=== PATIENT | male | born 1965 | race Caucasian/White ===

== ENCOUNTER 2024-06-02 15:31 | Emergency (ER) | payer MEDICARE, SELFPAY ==
[2024-06-02] VITALS (13 sets, daily range): BP systolic 118–163; BP diastolic 61–96; PULSE 79–92; RESP 14–21; TEMP 36.7–37.2; O2SAT 95–100; BMI 21.7
--- NOTE | 2024-06-02 16:14 | EDNOTE_ITS ---
ED General RME/HPI General Chief complaint: Flu Like Symptoms Stated complaint: FLU LIKE SYMPTOMS X 3 DAYS Time Seen by Provider: 06/02/24 16:09 Arrival date/time: 06/02/24 15:31 CC: Nausea vomiting with occasional soft stool HPI onset going for the past 3 days denies headache shortness of breath difficulty breathing or chest pain. At 2045 patient admits that he did not tell me about the right shoulder and right hip pain status post fall when he had a syncopal event after becoming dizzy lightheaded. The patient has free range of motion of his shoulder but states his pain in his hip continues to worsen, and he continues to have nausea. Related Data Home Medications ?Medication ?Instructions ?Recorded ?Confirmed carvedilol 3.125 mg tablet 3.125 mg PO BID 10/07/23 10/07/23 duloxetine 60 mg capsule,delayed 60 mg PO QDAY 10/07/23 10/07/23 release empagliflozin 12.5 mg-metformin 1 tab PO BID 10/07/23 10/07/23 1,000 mg tablet (Synjardy) ferrous sulfate 325 mg (65 mg 325 mg PO MWF 10/07/23 10/07/23 iron) tablet (FeroSul) flecainide 100 mg tablet 100 mg PO BID 10/07/23 10/07/23 gabapentin 800 mg tablet 800 mg PO TID 10/07/23 10/07/23 ropinirole 1 mg tablet 1 mg PO TID 10/07/23 10/07/23 sildenafil 100 mg tablet (Viagra) 100 mg PO QDAY PRN erection 10/07/23 10/07/23 simvastatin 40 mg tablet 40 mg PO QPM 10/07/23 10/07/23 Previous Rx's ?Medication ?Instructions ?Recorded clindamycin HCl 300 mg capsule 300 mg PO Q8H #24 caps 10/08/23 meloxicam 7.5 mg tablet 7.5 mg PO QDAY #10 tabs 06/02/24 ondansetron 4 mg disintegrating 4 mg PO BID #14 tabs 06/02/24 tablet pantoprazole 20 mg tablet,delayed 20 mg PO QAM #30 tabs 06/02/24 release (Protonix) Allergies Allergy/AdvReac Type Severity Reaction Status Date / Time No Known Allergies Allergy Verified 06/02/24 15:47 Review of Systems Review of Systems Narrative Review of Systems: GEN: No fever, no chills, no weight loss EYES: No discharge, no visual changes, no pain HEENT: No ear pain, no congestion, no sore throat PULM: No shortness of breath, no cough, no congestion CV: No chest pain, no dyspnea on exertion, no palpitations GI: + nausea, + vomiting, no diarrhea, no pain, no constipation : No frequency, no urgency, no dysuria MUSC/SKEL: No joint pain, no back pain SKIN: No rash PSYCH: No hallucinations, no depression HEME/LYMPH: No easy bleeding or bruising tendencies NEURO: No weakness, no headache Past Medical History Past Medical History NEUROLOGIC: Positive Neurological Disorders (restless leg syndrome) and Peripheral Neuropathy; Negative Seizures CARDIAC: Positive Cardiac Disorders and Atrial Fibrillation; Negative Congestive Heart Failure or Hypertension (no more after gastric bypass.) RESPIRATORY: Negative Chronic Obstructive Pulmonary Disease (COPD) or Asthma GENITOURINARY: Negative Renal Disease MUSCULOSKELETAL: Negative Musculoskeletal Disorders ENDOCRINE: Positive Diabetes Mellitus Type 2; Negative Diabetes Mellitus Type 1 HEMATOLOGIC: Negative Sickle Cell Disease PSYCHO/SOCIAL: Positive Depression and Anxiety OTHER HISTORY: Positive Falls; Negative Blood Transfusions, Anesthesia Reactions or MRSA Surgical History SURGICAL: Positive Gastric Bypass Surgery (6 yrs ago) Social History SMOKING STATUS: Current every day smoker SECOND HAND EXPOSURE: No ED Exam Narrative Physical exam: [General: Not in any acute distress Head normocephalic HEENT: Within acceptable limits Neck is supple nontender Chest equal chest rise nontender to palpation Respiratory: Clear to auscultation no wheezes crackles or rubs CV: Rate rhythm is regular no murmurs rubs or clicks Abdomen is soft nontender no masses positive bowel sounds all 4 quadrants Back: No CVA tenderness no spinous process tenderness from cervical spine thoracic and lumbar spine Skin: Intact no petechiae rash induration ulceration or crepitus Extremities: Moving all extremity against resistance cap refill less than 2 seconds neurosensory intact Neuro: Awake alert oriented x3 Glascow coma 15 no focal deficits] Course Quality Measures none Orders Category Date Time Status Saline [Insert IV] NOW Care 06/02/24 16:[address] abdomen pelvis wo con Stat Exams 06/02/24 18:03 Completed XR hip RT w pelvis 2-3V Stat Exams 06/02/24 20:45 Completed CBC Stat Lab 06/02/24 16:37 Completed CMP [Comprehensive Metabolic Panel] Stat Lab 06/02/24 16:37 Completed CMP [Comprehensive Metabolic Panel] Stat Lab 06/02/24 22:27 Completed Drug Screen,Urine Stat Lab 06/02/24 20:21 Completed Urinalysis Stat Lab 06/02/24 20:21 Completed Ketorolac Inj [Toradol Inj] Med 06/02/24 20:42 Discontinued 15 mg IVP X1 ONE Lidocaine 2% Viscous [Xylocaine 2% Viscous] Med 06/02/24 22:35 Discontinued 15 ml PO X1 ONE Ondansetron Inj [Zofran Inj] Med 06/02/24 20:42 Discontinued 4 mg IV X1 ONE Ondansetron Inj [Zofran Inj] Med 06/02/24 22:30 Discontinued 4 mg IV X1 ONE Sodium Chloride 0.9% 1000 ml [Ns] 1,000 ml Med 06/02/24 16:13 Discontinued IV 999 mls/hr Sodium Chloride 0.9% 1000 ml [Ns] 1,000 ml Med 06/02/24 17:47 Discontinued IV 999 mls/hr Sodium Chloride 0.9% 1000 ml [Ns] 1,000 ml Med 06/02/24 21:31 Discontinued IV 999 mls/hr mg Hyd/Al Hyd/Tommie Susp [Maalox Susp] Med 06/02/24 22:35 Discontinued 30 ml PO X1 ONE Vital Signs Vital signs: Vital Signs Temperature 98.1 F 06/02/24 15:32 Pulse Rate 91 06/02/24 15:32 Respiratory Rate 20 06/02/24 15:32 Blood Pressure 125/78 06/02/24 15:32 Pulse Oximetry (%) 100 06/02/24 15:32 Oxygen Delivery Method Room Air 06/02/24 15:32 [facility] Patient data External records reviewed:: [facility] previous records and EMS form Clinical information provided by:: patient and EMS Social determinants that could affect healthcare access:: none Patient has the following chronic illnesses:: Diabetes hypertension depression How is presenting disease/condition affected by chronic disease/condition?: u neffected by Evaluation data The following diagnostics were reviewed and interpreted by me:: lab results Lab and/or radiology exams considered but not ordered:: Hip is negative for any acute finding as interpreted by me read by radiology CBC shows no acute anemia thrombocytopenia leukocytosis of 13.9 CMP shows a sodium 133 potassium of 4.3 chlorides 95 CO2 of 27.1 BUN of 33 creatinine 1.4 glucose of 98. AST is mildly elevated no other transaminitis or T. bili elevation Urine is negative UDS is positive for THC CT of the abdomen is inter by me read by radiology shows a distended gallbladder with no other acute finding. COVID and influenza are negative Repeat CMP shows a creatinine 1.1 patient be discharged home. Interpretation Summary: I do not feel this is a gallbladder patient had a syncopal event, with shoulder and hip pain in the shoulder is unremarkable hip is unremarkable via x-ray this time comfortable discharging the patient home Medications Medications considered but not ordered:: None Medication administrations:: Medication Administration History Discontinued Medications Al Hydrox/Mg Hydrox/Simethicone (Mg Hyd/Al Hyd/Tommie (Maalox Reg) Susp 30 Ml Udc) 30 ml PO X1 ONE Stop: 06/02/24 22:36 Last Admin: 06/02/24 22:38 Dose: 30 ml Documented By: TC Sodium Chloride (Ns) 1,000 mls @ 999 mls/hr IV .Q1H1M ONE Stop: 06/02/24 17:13 Last Infusion: 06/02/24 19:01 Dose: Infused Documented By: Admin: 06/02/24 16:45 Dose: 999 mls/hr Documented By: VG Sodium Chloride (Ns) 1,000 mls @ 999 mls/hr IV .Q1H1M ONE Stop: 06/02/24 18:47 Last Infusion: 06/02/24 20:15 Dose: Infused Documented By: Admin: 06/02/24 19:16 Dose: 999 mls/hr Documented By: VG Sodium Chloride (Ns) 1,000 mls @ 999 mls/hr IV .Q1H1M ONE Stop: 06/02/24 22:31 Last Infusion: 06/02/24 22:30 Dose: Infused Documented By: Admin: 06/02/24 21:39 Dose: 999 mls/hr Documented By: TC Ketorolac Tromethamine (Ketorolac Inj 30 Mg/Ml Vial) 15 mg IVP X1 ONE Stop: 06/02/24 20:43 Last Admin: 06/02/24 21:10 Dose: 15 mg Documented By: TC Lidocaine HCl (Lidocaine Viscous 2% 15 Ml Udc) 15 ml PO X1 ONE Stop: 06/02/24 22:36 Last Admin: 06/02/24 22:38 Dose: 15 ml Documented By: TC Ondansetron HCl (Ondansetron Inj 2 Mg/Ml Inj 2 Ml) 4 mg IV X1 ONE; Protocol Stop: 06/02/24 20:43 Last Admin: 06/02/24 21:11 Dose: 4 mg Documented By: TC Ondansetron HCl (Ondansetron Inj 2 Mg/Ml Inj 2 Ml) 4 mg IV X1 ONE; Protocol Stop: 06/02/24 22:31 Last Admin: 06/02/24 22:32 Dose: 4 mg Documented By: TC None Consultations Consultation(s) initiated? (list below): No Diagnosis Differential Diagnosis ED Complaint MDM: Dehydration MARCO syncope Most likely diagnosis given after review of the tests above:: Dehydration MARCO syncope Admission Indicated Admission indicated?: not indicated Explain why admission is indicated or not indicated:: Stable for discharge Admission Request Was there a request for admission?: No Disposition Plan Disposition Plan: Discharge Discharge Attestation Discharge Attestation: The patient and all family members were given an opportunity to ask questions and understood the discharge instructions. Discharge instructions specifically effects, indications for sooner follow up or return to the emergency department, and the expected course of current diagnosis. Patient condition: Stable Medical Decision Making Differential Diagnosis Differential Diagnosis: Dehydration MARCO syncope Lab Data 06/02/24 16:37 06/02/24 22:27 Labs: Lab Results 06/02/24 06/02/24 06/02/24 Range/Units 16:37 20:21 22:27 WBC 13.9 H (3.8-10.6) Thou/mm3 RBC 5.32 (4.50-5.90) Miln/mm3 Hgb 15.7 (13.5-16.0) g/dL Hct 42.8 (41.0-53.0) % MCV 81 (80-100) fL MCH 29.5 (25.0-35.0) pg MCHC 36.7 (31.0-37.0) g/dl RDW Std Deviation 33.9 L (35.1-43.9) fL Plt Count 322 (140-440) Thou/mm3 Neut % (Auto) 68 (37-80) % Lymph % (Auto) 22 (10-50) % Wilcox % (Auto) 9 (0-12) % Eos % (Auto) 1 (0-10) % Baso % (Auto) 1 (0-2.5) % Neut # (Auto) 9.4 H (1.8-7.7) Thou/mm3 Lymph # (Auto) 3.1 (1.0-4.8) Thou/mm3 Wilcox # (Auto) 1.2 H (0.0-0.8) Thou/mm3 Eos # (Auto) 0.1 (0.0-0.5) Thou/mm3 Baso # (Auto) 0.1 (0.0-0.2) Thou/mm3 Immature Gran # (Auto) 0.04 H (0.00-0.00) Thou/mm3 Absolute Nucleated RBC 0.00 (0.00-0.00) Thou/mm3 Immature Gran % 0 (0-0) % Nucleated RBC % 0 (0) /100 WBC Sodium 133 L 134 L (136-145) mMol/L Potassium 4.3 4.0 (3.4-5.1) mMol/L Chloride 95 L 101 (98-107) mMol/L Carbon Dioxide 27.1 25.8 (20.0-31.0) mMol/L Anion Gap 11 7 (7-16) BUN 33 H 27 H (9-23) mg/dL Creatinine 1.4 H 1.1 (0.6-1.3) mg/dL Estim Creat Clear Calc 59.8 L 76.1 (>60) mL/min eGFR 59 L > 60 (60 - ) See Note BUN/Creatinine Ratio 24 H 25 H (12-20) Ratio Glucose 98 143 H (74-106) mg/dL Calculated Osmolality 273 L 275 (275-295) Calcium 10.7 H 8.6 D (8.3-10.6) mg/dL Corrected Calcium 10.7 H 9.0 D (8.5-10.1) mg/dL Total Bilirubin 0.8 0.5 (0.3-1.2) mg/dL AST 49 H 42 H (0-34) U/L ALT 37 27 (10-49) U/L Alkaline Phosphatase 134 H 98 D (46-116) U/L Total Protein 7.5 5.9 (5.7-8.2) gm/dL Albumin 4.6 3.5 D (3.5-5.0) gm/dL Globulin 2.9 2.4 (2.3-3.5) gm/dL Albumin/Globulin Ratio 1.6 1.5 (1.2-2.2) Ur Collection Type Clean Catch Urine Color Yellow (Lt Yel-Yel) Urine Clarity Clear (Clear/Hazy) Urine pH 6.0 (5.0-7.0) Ur Specific [place] 1.037 H (1.001-1.035) Urine Protein 1+ A (Neg - Trace) Urine Glucose (UA) 4+ A (Negative) Urine Ketones 1+ A (Negative) Urine Blood Trace (Negative) Urine Nitrite Negative (Negative) Urine Bilirubin Negative (Negative) Urine Urobilinogen (Auto) Negative (0.0-1.0) mg/dL Ur Leukocyte Esterase Negative (Negative) Urine RBC 4 H (0-3) /hpf Urine WBC 0 (0-5) /hpf Ur Squamous Epith Cells < 1 (0-5) /hpf Urine Bacteria Rare (None) Urine Opiates Screen Negative (Negative) Urine Fentanyl Screen Negative (Negative) Ur Barbiturates Screen Negative (Negative) U Amphetamin/Meth Scrn Negative (Negative) U Benzodiazepines Scrn Negative (Negative) U Cocaine Metab Screen Negative (Negative) U Marijuana (THC) Screen Positive A (Negative) Discharge Plan Plan Patient Disposition: HOME (Self Care) Patient condition on transfer: Stable Prescriptions/Referrals Prescriptions/Med Rec: New ondansetron 4 mg tablet,disintegrating 4 mg PO BID Qty: 14 0RF pantoprazole [Protonix] 20 mg tablet,delayed release (DR/EC) 20 mg PO QAM Qty: 30 0RF meloxicam 7.5 mg tablet 7.5 mg PO QDAY Qty: 10 0RF No Action gabapentin 800 mg Tablet 800 mg PO TID Synjardy 12.5-1,000 mg Tablet 1 tab PO BID Rx Instructions: with food simvastatin 40 mg Tablet 40 mg PO QPM duloxetine 60 mg Capsule,Delayed Release(Dr/Ec) 60 mg PO QDAY ferrous sulfate [FeroSul] 325 mg (65 mg iron) Tablet 325 mg PO MWF Rx Instructions: Three Times Weekly For Restless Leg Syndrome carvedilol 3.125 mg Tablet 3.125 mg PO BID Rx Instructions: must administer with a meal/food flecainide 100 mg Tablet 100 mg PO BID Rx Instructions: flecainide acetate ropinirole 1 mg Tablet 1 mg PO TID sildenafil [Viagra] 100 mg Tablet 100 mg PO QDAY PRN (Reason: erection) Rx Instructions: administer 30 minutes to 4 hours before activity. Pt has not taken or has not needed for a while. clindamycin HCl 300 mg capsule 300 mg PO Q8H Qty: 24 0RF Referrals: Antwan Hood MD [Primary Care Provider] - In 1 week Problem List Clinical Impression: Syncope, Nausea vomiting and diarrhea, MARCO (acute kidney injury) Patient/Caregiver Discharge Instructions Other Activity Instructions:: Rest: Drink plenty of fluids, if there is worsening symptoms follow-up with your primary care provider return the emergency room for reevaluation. Education Materials: Self-Care for Vomiting and Diarrhea, Dizziness Fainting Poss Causes, ED Vomiting and Diarrhea ... Print Language: Latvian Stand Alone Forms: Ana Award Info., Work/School Release, Patient Portal Info Letter JOSEP/LOUISE Supervising Physician JOSEP/LOUISE Supervising Physician: Shalom Mccormick ENP
[2024-06-02] MEDS: SODIUM CHLORIDE 0.9% 1000 ML 1,000 ML 999 ML IV ×3 (16:45→21:39)
[2024-06-02 17:05] LABS: Basophils # (Auto) 0.1 Thou/mm3 (0.0-0.2); Basophils % (Auto) 1 % (0-2.5); Eosinophils # (Auto) 0.1 Thou/mm3 (0.0-0.5); Eosinophils % (Auto) 1 % (0-10); Hematocrit 42.8 % (41.0-53.0); Hemoglobin 15.7 g/dL (13.5-16.0); Immature Granulocytes % (Auto) 0 % (0-0); Immature Granulocytes Auto 0.04 Thou/mm3 (0.00-0.00); Lymphocytes # (Auto) 3.1 Thou/mm3 (1.0-4.8); Lymphocytes % (Auto) 22 % (10-50); Mean Corpuscular HGB Conc 36.7 g/dl (31.0-37.0); Mean Corpuscular Hemoglobin 29.5 pg (25.0-35.0); Mean Corpuscular Volume 81 fL (80-100); Monocytes # (Auto) 1.2 Thou/mm3 (0.0-0.8); Monocytes % (Auto) 9 % (0-12); Neutrophils # (Auto) 9.4 Thou/mm3 (1.8-7.7); Neutrophils % (Auto) 68 % (37-80); Nucleated Red Blood Cell % 0 /100 WBC (0); Platelet Count 322 Thou/mm3 (140-440); RDW Standard Deviation 33.9 fL (35.1-43.9); Red Blood Count 5.32 Miln/mm3 (4.50-5.90); White Blood Count 13.9 Thou/mm3 (3.8-10.6)
[2024-06-02 17:25] LABS: Alanine Aminotransferase 37 U/L (10-49); Albumin, Serum 4.6 gm/dL (3.5-5.0); Albumin/Globulin Ratio 1.6 (1.2-2.2); Alkaline Phosphatase 134 U/L (46-116); Anion Gap 11 (7-16); Aspartate Amino Transferase 49 U/L (0-34); BUN/Creatinine Ratio 24 Ratio (12-20); Bilirubin,Total 0.8 mg/dL (0.3-1.2); Blood Urea Nitrogen 33 mg/dL (9-23); Calcium 10.7 mg/dL (8.3-10.6); Calcium (Corrected) 10.7 mg/dL (8.5-10.1); Carbon Dioxide 27.1 mMol/L (20.0-31.0); Chloride 95 mMol/L (98-107); Creatinine (Component) 1.4 mg/dL (0.6-1.3); Estimated Creatinine Clearance 59.8 mL/min (>60); Globulin 2.9 gm/dL (2.3-3.5); Glucose 98 mg/dL (74-106); Osmolality,Calculated 273 (275-295); Potassium 4.3 mMol/L (3.4-5.1); Sodium 133 mMol/L (136-145); Total Protein 7.5 gm/dL (5.7-8.2); eGFR 59 See Note
--- NOTE | 2024-06-02 18:03 | XR_ITS ---
Examination: CT abdomen and pelvis without contrast. Coronal 3-D reconstructions. Sagittal 2-D reconstructions. Date and time of exam:June 02, 2024 1829 hrs. Indications: Status post fall today, generalized abdominal pain dizziness nausea vomiting CTDI: vol (mGy): 7.38 DLP: (mGycm): 429 Technique: Axial images of the abdomen have been obtained, 3 mm slice thickness Intravenous contrast material has not been administered. Low dose protocols were performed. One or more of the following dose reduction techniques were used; automated exposure control, adjustment of the mA and/or KV according to patient size, use of iterative reconstruction technique. Findings: Old fracture right 10th rib No focal liver lesions Distended gallbladder Gastric sutures No pancreatic or splenic mass No renal calculi or hydronephrosis Aorta normal size No free blood in the abdomen Urinary bladder intact Moderate osteopenia Impression: No pneumothorax No abdominal parenchymal laceration Abdominal aorta intact, no free blood in the Mildly distended gallbladder, consider gallbladder sonography follow-up Were
[2024-06-02 20:27] LABS: Collection Type, Urine Clean Catch; WBC,Urine 0 /hpf (0-5)
[2024-06-02 20:45] LABS: Bacteria,Urine Rare; Bilirubin,Urine Negative (Negative); Blood,Urine Trace (Negative); Clarity,Urine Clear (Clear/Hazy); Color,Urine Yellow (Lt Yel-Yel); Glucose, Urine 4+ (Negative); Ketones,Urine 1+ (Negative); Leukocyte Esterase,Urine Negative (Negative); Nitrite,Urine Negative (Negative); Protein,Urine 1+ (Neg - Trace); RBC,Urine 4 /hpf (0-3); Specific Gravity,Urine 1.037 (1.001-1.035); Squamous Epithelial Cell,Urine < 1 /hpf (0-5); Urobilinogen,Urine Negative mg/dL (0.0-1.0)
--- NOTE | 2024-06-02 20:45 | XR_ITS ---
Examination:Right hip AP, lateral, AP pelvis 3 views Technique: Hip AP lateral, AP pelvis, 3 views Exam date and time:June 02, 20242050 hrs. Indications: Patient fell tonight with injury to the right hip, right hip pain. Findings: No right hip fracture No dislocation Moderate narrowing hip joints Left hip bones of the pelvis intact Impression: No acute hip or pelvic fracture.
[2024-06-02 21:05] LABS: Amphetamine/Methamp Scrn,U Negative (Negative); Barbiturate Screen,Urine Negative (Negative); Benzodiazepines Screen,Urine Negative (Negative); Benzoylecgonine Screen, Ur Negative (Negative); Fentanyl Screen,Urine Negative (Negative); Opiate Screen,Urine Negative (Negative); THC Screen,Urine Positive (Negative)
[2024-06-02] MEDS: KETOROLAC INJ 30 MG/ML VIAL 15 MG IVP (21:10)
[2024-06-02] MEDS: ONDANSETRON INJ 2 MG/ML INJ 2 ML 4 MG IV ×2 (21:11→22:32)
[2024-06-02] MEDS: MG HYD/AL HYD/SIME (Maalox Reg) SUSP 30 ML UDC PO (22:38)
[2024-06-02] MEDS: LIDOCAINE VISCOUS 2% 15 ML UDC PO (22:38)
[2024-06-02 22:53] LABS: Alanine Aminotransferase 27 U/L (10-49); Albumin, Serum 3.5 gm/dL (3.5-5.0); Albumin/Globulin Ratio 1.5 (1.2-2.2); Alkaline Phosphatase 98 U/L (46-116); Anion Gap 7 (7-16); Aspartate Amino Transferase 42 U/L (0-34); BUN/Creatinine Ratio 25 Ratio (12-20); Bilirubin,Total 0.5 mg/dL (0.3-1.2); Blood Urea Nitrogen 27 mg/dL (9-23); Calcium 8.6 mg/dL (8.3-10.6); Carbon Dioxide 25.8 mMol/L (20.0-31.0); Chloride 101 mMol/L (98-107); Creatinine (Component) 1.1 mg/dL (0.6-1.3); Estimated Creatinine Clearance 76.1 mL/min (>60); Globulin 2.4 gm/dL (2.3-3.5); Glucose 143 mg/dL (74-106); Osmolality,Calculated 275 (275-295); Sodium 134 mMol/L (136-145); Total Protein 5.9 gm/dL (5.7-8.2); eGFR > 60 See Note
[2024-06-02] MEDS: DiphenhydrAMINE INJ 50 MG/ML VIAL IVP (23:09)
[2024-06-02] MEDS: METOCLOPRAMIDE INJ 5 MG/ML VIAL 2 ML 10 MG IVP (23:09)
[2024-06-03 00:18] VITALS: BP 147/79; PULSE 81; RESP 16; O2SAT 98
== END 2024-06-03 00:19 | disposition home or self-care (01) ==
PROVIDERS: Registered Nurse General Practice; Emergency Provider Emergency Medicine; PCP Family Medicine
DX: R11.2 Nausea with vomiting, unspecified (principal); R55 Syncope and collapse; N17.9 Acute kidney failure, unspecified; M25.551 Pain in right hip
CPT/HCPCS: 36415; 73502; 74176; 80053; 80307; 81001; 85025; 96361; 96374; 96375; 96376; 99284; J1200; J1885; J2405; J2765; J3490; J7030; A9270

== ENCOUNTER 2024-08-07 22:24 | Emergency (ER) | payer MEDICARE, SELFPAY ==
[2024-08-07 22:37] VITALS: BP 159/95; PULSE 95; RESP 19; TEMP 36.8; O2SAT 99; BMI 23.0
[2024-08-08 00:51] LABS: Collection Type, Urine Clean Catch; RBC,Urine 0 /hpf (0-3); Squamous Epithelial Cell,Urine 0 /hpf (0-5)
[2024-08-08 00:57] LABS: Bilirubin,Urine Negative (Negative); Blood,Urine Trace (Negative); Clarity,Urine Clear (Clear/Hazy); Color,Urine Lt-Yellow (Lt Yel-Yel); Culture Indicated,Urine Not Indicated; Glucose, Urine 3+ (Negative); Ketones,Urine Negative (Negative); Leukocyte Esterase,Urine Negative (Negative); Nitrite,Urine Negative (Negative); Protein,Urine Trace (Neg - Trace); Urobilinogen,Urine Negative mg/dL (0.0-1.0); WBC,Urine < 1 /hpf (0-5)
[2024-08-08 01:11] LABS: Alcohol, Urine Negative (Negative); Amphetamine/Methamp Scrn,U Positive (Negative); Barbiturate Screen,Urine Negative (Negative); Benzodiazepines Screen,Urine Negative (Negative); Benzoylecgonine Screen, Ur Negative (Negative); Fentanyl Screen,Urine Negative (Negative); Opiate Screen,Urine Negative (Negative); THC Screen,Urine Positive (Negative)
--- NOTE | 2024-08-08 01:41 | PC.NURSE ---
PPD STATED THAT CRISTINA LI WOULD LIKE TO BE NOTIFIED WHEN PT IS DISCHARGED. [phone]. [address] [facility].
--- NOTE | 2024-08-08 02:34 | EDNOTE_ITS ---
ED Psych RME/HPI General Chief Complaint: Psychiatric Symptoms Stated Complaint: 5150 Source: patient and EMS Arrival date/time: 08/07/24 22:24 Mode of arrival: EMS Limitations: no limitations RME / HPI RME / HPI Narrative: Dr. Carpenter?s Main ED Evaluation: 58-year-old male brought in by ambulance on a 5150 hold for reported danger to others. On arrival, the patient appears anxious, talkative, hyperactive, and agitated, with a notably unkempt appearance. He endorses a range of affective symptoms including feelings of depression, sadness, anger, and restlessness. He reports significant sleep disturbances, including difficulty initiating and maintaining sleep. Psychosocial stressors include an ongoing divorce, which he cites as a major source of emotional distress. He specifically expressed homicidal ideation toward ?a man named Osbaldo staying with [his] ,? prompting the current evaluation. The patient denies any history of suicide attempts or panic disorder but reports a family history of suicide. He has a known history of substance use, including methamphetamine and marijuana. Related Data Home Medications ?Medication ?Instructions ?Recorded ?Confirmed carvedilol 3.125 mg tablet 3.125 mg PO BID 10/07/23 duloxetine 60 mg capsule,delayed 60 mg PO QDAY 4 10/07/23 release empagliflozin 12.5 mg-metformin 1 tab PO BID 10/07/23 10/07/23 1,000 mg tablet (Synjardy) ferrous sulfate 325 mg (65 mg 325 mg PO MWF 10/07/23 0 10/07/23 iron) tablet (FeroSul) flecainide 100 mg tablet 100 mg PO BID 10/07/2310/06 gabapentin 800 mg tablet 800 mg PO TID 10/07/2310/06 ropinirole 1 mg tablet 1 mg PO TID 10/07/23 4 sildenafil 100 mg tablet (Viagra) 100 mg PO QDAY PRN e rection 10/07/23 10/07/23 simvastatin 40 mg tablet 40 mg PO QPM 10/07/23 Previous Rx's ?Medication ?Instructions ?Recorded clindamycin HCl 300 mg capsule 300 mg PO Q8H #24 caps 10/08/23 meloxicam 7.5 mg tablet 7.5 mg PO QDAY #10 tabs 05/15 02/06 ondansetron 4 mg disintegrating 4 mg PO BID #14 tabs 0 06/02/24 tablet pantoprazole 20 mg tablet,delayed 20 mg PO QAM #30 tab s 06/02/24 release (Protonix) Allergies Allergy/AdvReac Type Severity Reaction Status Date / Time No Known Allergies Allergy Verified 06/02/24 15:47 Review of Systems Review of Systems Systems Reviewed: All systems reviewed, normal except as documented Past Medical History Past Medical History NEUROLOGIC: Positive Neurological Disorders and Peripheral Neuropathy; Negative Seizures CARDIAC: Positive Cardiac Disorders and Atrial Fibrillation; Negative Congestive Heart Failure or Hypertension RESPIRATORY: Negative Chronic Obstructive Pulmonary Disease (COPD) or Asthma GENITOURINARY: Negative Renal Disease MUSCULOSKELETAL: Negative Musculoskeletal Disorders ENDOCRINE: Positive Diabetes Mellitus Type 2; Negative Diabetes Mellitus Type 1 HEMATOLOGIC: Negative Sickle Cell Disease PSYCHO/SOCIAL: Positive Depression and Anxiety OTHER HISTORY: Positive Falls; Negative Blood Transfusions, Anesthesia Reactions or MRSA Surgical History SURGICAL: Positive Gastric Bypass Surgery Social History SMOKING STATUS: Current every day smoker SECOND HAND EXPOSURE: No ED Exam Narrative Physical exam: On arrival, the patient appears anxious, talkative, hyperactive, and agitated, with a notably unkempt appearance. General Limitations: Present no limitations General appearance: Present alert and in no apparent distress Head Head exam: Present atraumatic Eye Eye exam: Present normal appearance, PERRL and EOMI ENT ENT exam: Present normal exam, normal oropharynx and mucous membranes moist Neck Neck exam: Present normal inspection, full ROM and trachea midline Chest Chest inspection: Present normal inspection and symmetric chest wall rise Respiratory Respiratory exam: Present normal lung sounds bilaterally Cardiovascular Cardiovascular exam: Present regular rate, normal rhythm and normal heart sounds Abdominal Exam Abdominal exam: Present soft and normal bowel sounds Extremities Exam Extremities exam: Present normal inspection and full ROM Back Exam Back exam: Present normal inspection and full ROM Neurological Exam Neurological exam: Present alert, oriented X3 and CN II-XII intact Psychiatric Psychiatric exam: Present normal affect and normal mood Skin Skin exam: Present warm, dry, intact and normal color Course Quality Measures none Orders Category Date Time Status Fingerstick [Bedside Blood Glucose] NOW Care 08/07/24 22:44 Active Alcohol, Urine Stat Lab 08/08/24 00:23 Completed Drug Screen,Urine Stat Lab 08/08/24 00:23 Completed Urinalysis, C/S if Indicated Stat Lab 08/08/24 00:23 Completed DiphenhydrAMINE [Benadryl] Med 08/08/24 02:34 Discontinued 50 mg PO X1 ONE LORazepam [Ativan] Med 08/08/24 02:34 Discontinued 2 mg PO X1 ONE Vital Signs Vital signs: Vital Signs Temperature 98.3 F 08/07/24 22:37 Pulse Rate 95 08/07/24 22:37 Respiratory Rate 19 08/07/24 22:37 Blood Pressure 159/95 H 08/07/24 22:37 Pulse Oximetry (%) 99 08/07/24 22:37 Oxygen Delivery Method Room Air 08/07/24 22:37 Psych MDM Narrative MDM Narrative:: 0023 Medically cleared for crisis 0600 Care signed out to oncoming dayshift provider. Past medical, surgical, social and family history reviewed. Vitals and home medications reviewed. Results and treatment plan discussed. They will assume the care of the patient at this time and will follow the patient, pending mental health evaluation. Scribe Attestation: ILindsey, am scribing for and in the presence of Dr. Carpenter. Provider Notation: Although this document has been carefully reviewed, there may still be some phonetic and other typographical errors. These errors are purely grammatical due to imperfections in the software program and should not be construed in any way to compromise the substance of the patient's medical care during this visit. Patient data External records reviewed:: [facility] previous records and EMS form Clinical information provided by:: patient and EMS Social determinants that could affect healthcare access:: mental health Patient has the following chronic illnesses:: see PMH How is presenting disease/condition affected by chronic disease/condition?: uneffected by Evaluation data The following diagnostics were reviewed and interpreted by me:: lab results Lab and/or radiology exams considered but not ordered:: na Interpretation Summary: Utox positive for meth and marijuana Medications / Prescriptions Medications or Prescriptions considered but not ordered:: na Medication administrations:: Medication Administration History Discontinued Medications Diphenhydramine HCl (Diphenhydramine Elix 25 Mg/10 Ml Udc) 50 mg PO X1 ONE Stop: 08/08/24 02:35 Last Admin: 08/08/24 02:45 Dose: 50 mg Documented By: EF Lorazepam (Lorazepam 0.5 Mg Tablet) 2 mg PO X1 ONE Stop: 08/08/24 02:35 Last Admin: 08/08/24 02:44 Dose: 2 mg Documented By: EF as above, if any Consultations Consultation(s) initiated? (list below): Yes Consultation #1 (Physician, Specialty, Details): see narrative Diagnosis Psych Differential Diagnosis: acute psychosis, suicidal ideation and depression Most likely diagnosis given after review of the tests above:: see clinical impression below Admission Indicated Admission indicated?: not indicated Explain why admission is indicated or not indicated:: pending mental health evaluation Admission Request Was there a request for admission?: No Disposition Plan Disposition Plan: other (specify) (sign out pending mental health evaluation) Discharge Plan Plan Patient condition on transfer: Stable Prescriptions/Referrals Prescriptions/Med Rec: No Action ondansetron 4 mg tablet,disintegrating 4 mg PO BID Qty: 14 0RF pantoprazole [Protonix] 20 mg tablet,delayed release (DR/EC) 20 mg PO QAM Qty: 30 0RF meloxicam 7.5 mg tablet 7.5 mg PO QDAY Qty: 10 0RF gabapentin 800 mg Tablet 800 mg PO TID Synjardy 12.5-1,000 mg Tablet 1 tab PO BID Rx Instructions: with food simvastatin 40 mg Tablet 40 mg PO QPM duloxetine 60 mg Capsule,Delayed Release(Dr/Ec) 60 mg PO QDAY ferrous sulfate [FeroSul] 325 mg (65 mg iron) Tablet 325 mg PO MWF Rx Instructions: Three Times Weekly For Restless Leg Syndrome carvedilol 3.125 mg Tablet 3.125 mg PO BID Rx Instructions: must administer with a meal/food flecainide 100 mg Tablet 100 mg PO BID Rx Instructions: flecainide acetate ropinirole 1 mg Tablet 1 mg PO TID sildenafil [Viagra] 100 mg Tablet 100 mg PO QDAY PRN (Reason: erection) Rx Instructions: administer 30 minutes to 4 hours before activity. Pt has not taken or has not needed for a while. clindamycin HCl 300 mg capsule 300 mg PO Q8H Qty: 24 0RF Referrals: No Primary/Family,Physician [Primary Care Provider] - In 1 week Problem List Clinical Impression: Suicidal ideation Patient/Caregiver Discharge Instructions Print Language: Citizen Of [place]
[2024-08-08] MEDS: LORazepam 0.5 MG TABLET 2 MG PO (02:44)
[2024-08-08] MEDS: DiphenhydrAMINE ELIX 25 MG/10 ML UDC 50 MG PO (02:45)
[2024-08-08 06:21] VITALS: BP 144/87; PULSE 92; RESP 18; TEMP 36.8; O2SAT 98
[2024-08-08 07:56] LABS: Basophils # (Auto) 0.1 Thou/mm3 (0.0-0.2); Basophils % (Auto) 1 % (0-2.5); Eosinophils # (Auto) 0.3 Thou/mm3 (0.0-0.5); Eosinophils % (Auto) 4 % (0-10); Hematocrit 39.8 % (41.0-53.0); Immature Granulocytes % (Auto) 0 % (0-0); Immature Granulocytes Auto 0.01 Thou/mm3 (0.00-0.00); Lymphocytes # (Auto) 2.3 Thou/mm3 (1.0-4.8); Lymphocytes % (Auto) 27 % (10-50); Mean Corpuscular HGB Conc 35.2 g/dl (31.0-37.0); Mean Corpuscular Hemoglobin 29.4 pg (25.0-35.0); Mean Corpuscular Volume 83 fL (80-100); Monocytes # (Auto) 0.5 Thou/mm3 (0.0-0.8); Monocytes % (Auto) 6 % (0-12); Neutrophils # (Auto) 5.4 Thou/mm3 (1.8-7.7); Neutrophils % (Auto) 63 % (37-80); Nucleated Red Blood Cell % 0 /100 WBC (0); Platelet Count 280 Thou/mm3 (140-440); RDW Standard Deviation 37.6 fL (35.1-43.9); Red Blood Count 4.77 Miln/mm3 (4.50-5.90); White Blood Count 8.7 Thou/mm3 (3.8-10.6)
[2024-08-08 08:00] VITALS: BP 156/86; PULSE 95; RESP 16; TEMP 36.8; O2SAT 97
--- NOTE | 2024-08-08 08:16 | PD.EDADDENDU ---
Emergency Room Addendum Addendum Narrative: 0600: Care assumed from Dr. Carpenter, the previous shift emergency physician. Past medical, surgical, social and family history reviewed. Vitals and home medications reviewed. I will assume the care of the patient at this time, pending mental health evaluation. Please refer to the emergency department record for history and examination from initial visit.?The following addendum documentation note is intended to reflect any pending information, findings, or radiology results not included in the patient?s initial chart. 1104: Patient has been evaluated by ASW and placed on a 5150 hold, pending LPS facility placement. 1150: Patient has been accepted by Dr. Soni at [facility]. EMS p/u @ 14:00 hours.
[2024-08-08 08:21] LABS: Alanine Aminotransferase 18 U/L (10-49); Albumin, Serum 4.1 gm/dL (3.5-5.0); Albumin/Globulin Ratio 1.4 (1.2-2.2); Alkaline Phosphatase 102 U/L (46-116); Anion Gap 8 (7-16); Aspartate Amino Transferase 26 U/L (0-34); BUN/Creatinine Ratio 13 Ratio (12-20); Bilirubin,Total 0.6 mg/dL (0.3-1.2); Blood Urea Nitrogen 14 mg/dL (9-23); Calcium 9.9 mg/dL (8.3-10.6); Calcium (Corrected) 9.9 mg/dL (8.5-10.1); Carbon Dioxide 29.9 mMol/L (20.0-31.0); Chloride 98 mMol/L (98-107); Creatinine (Component) 1.1 mg/dL (0.6-1.3); Estimated Creatinine Clearance 80.8 mL/min (>60); Globulin 2.9 gm/dL (2.3-3.5); Glucose 284 mg/dL (74-106); Osmolality,Calculated 282 (275-295); Potassium 4.2 mMol/L (3.4-5.1); Sodium 136 mMol/L (136-145); eGFR > 60 See Note
--- NOTE | 2024-08-08 08:27 | PC.NURSE ---
DR. NOVA MADE AWARE PT HAS HX OF A. FIB. DR. NOVA AT BEDSIDE CONFIRMED WITH PT. RN CALRIFIED IF EKG TO BE DONE AT THIS TIME; PER DR. NOVA, NO EKG AT THIS TIME; PT DENYING ANY CHEST PAIN.
--- NOTE | 2024-08-08 08:30 | PC.NURSE ---
DR. NOVA MADE AWARE PT'S FSBS 278 AT THIS TIME; NO NEW ORDERS RECEIVED.
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
--- NOTE | 2024-08-08 11:37 | PC.CC ---
PPD Dispatch, Usha made telephone contact with ASW to report that per a report review that all of patient's firearms were confiscated from his home in [place] and the people he was making Homicidal Statements towards Osbaldo and Kaylen were present and notified of the homicidal statements.
--- NOTE | 2024-08-08 11:43 | PC.NURSE ---
Addendum entered by Momo Crawford RN 08/08/24 12:08: RUSSELL HUNTER UPDATED THAT PT'S TRANSPORTATION HERE AT [facility] TO ARRIVE AT 1410. Addendum entered by Momo Crawford RN 08/08/24 11:52: KITCHEN STEWARDESS MADE AWARE REGARDING PT'S PLACEMENT AT [facility] AT THIS TIME. Original Note: SPOKE TO RUSSELL FROM [facility] FOR RN-RN REPORT. PER RUSSELL HUNTER, WE ARE ACCEPTING PT TO OUR FACILITY. HE IS ACCEPTED UNDER DR. FRANCO; HE IS GOING TO [address] IN ROOM 217B. PLEASE KEEP ME UPDATED ON PT'S ETA TO OUR FACILITY.
[2024-08-08 11:47] VITALS: BP 112/62; PULSE 91; RESP 18; TEMP 37.1; O2SAT 99
--- NOTE | 2024-08-08 11:58 | PC.CC ---
Patient was accepted to [facility] [address] Room 217[address], Dr. Soni. Patient was advised that he had been accepted to [facility] and was receptive to information.
[2024-08-08 13:58] VITALS: BP 143/92; PULSE 89; RESP 20; TEMP 36.8; O2SAT 100
[2024-08-08] MEDS: NICOTINE PATCH 21 MG/24 HR PATCH.TD24 TOP (14:12)
--- NOTE | 2024-08-08 14:19 | PC.NURSE ---
SPOKE TO GENEVA LI, PT'S BROTHER, & UPDATED REGARDING PT'S POC, WITH PT'S CONSENT.
--- NOTE | 2024-08-08 14:40 | PC.NURSE ---
EMS AT BEDSIDE WITH [employer]NAGEMENT INSTRUCTOR; BEDSIDE REPORT GIVEN. EMS TO TRANSPORT PT TO [facility].
== END 2024-08-08 14:48 ==
PROVIDERS: Emergency Medicine; Emergency Provider Emergency Medicine
DX: Z04.6 Encounter for general psychiatric examination, requested by authority (principal); R45.851 Suicidal ideations; Z75.1 Person awaiting admission to adequate facility elsewhere
CPT/HCPCS: 36415; 80053; 80307; 80320; 81001; 85025; 90839; 96127; 99285; A9270; G0480

== ENCOUNTER 2025-03-20 13:13 | Inpatient (IN) | payer MEDICARE, SELFPAY ==
[2025-03-20] VITALS (12 sets, daily range): BP systolic 88–182; BP diastolic 51–97; PULSE 68–110; RESP 16–19; TEMP 36.5–38.7; O2SAT 96–100; BMI 23.0; BMI 23.1
--- NOTE | 2025-03-20 13:34 | XR_ITS ---
Examination: Foot, left, 3 views Technique: AP, oblique, lateral views foot, 3 views Date and time of exam: 03/20/2025, 2:05 p.m. INDICATION: Assess for left great toe osteomyelitis COMPARISON: None. FINDINGS: Lytic changes of the tuft of the great toe are present with small and tiny bone fragments in the region. There is surrounding soft tissue swelling as well. The findings are consistent with great toe osteomyelitis and cellulitis. Midfoot and forefoot soft tissue swelling also noted. There is no evidence for osteomyelitis elsewhere in the left foot. No acute fracture or subluxation identified. Chronic fracture deformity of the distal metaphysis of the third metatarsal is present. Osteoarthritic changes noted at the midfoot. Os naviculare noted. Prominent plantar calcaneal enthesophyte is present. Note is also made of a very small thin linear radiodense foreign body at the webspace between the second and third toes. Diffuse atherosclerotic calcifications noted. IMPRESSION: Left foot cellulitis including great toe where there is osteomyelitis at the tuft of the distal phalanx. Very small thin linear radiodense foreign body at the webspace between the second and third toes. Chronic fracture deformity of the distal aspect of the third metatarsal. Degenerative changes as described.
[2025-03-20 14:01] LABS: Lactate (Lactic Acid) 2.1 mMol/L (0.4-2.0)
[2025-03-20 14:04] LABS: Base Excess, Venous 1 (-3-3); O2 Saturation, Venous 33 % (96-97); PCO2, Venous 42 mmHg (36-56); PO2, Venous 19 mmHg (15-58); pH, Venous 7.40 (7.33-7.66)
[2025-03-20 14:05] LABS: Basophils # (Auto) 0.0 Thou/mm3 (0.0-0.2); Basophils % (Auto) 0 % (0-2.5); Beta Hydroxybutyrate 1.6 mmol/L (<0.6); Eosinophils # (Auto) 0.0 Thou/mm3 (0.0-0.5); Eosinophils % (Auto) 0 % (0-10); Hematocrit 41.8 % (41.0-53.0); Hemoglobin 14.2 g/dL (13.5-16.0); Immature Granulocytes Auto 0.04 Thou/mm3 (0.00-0.00); Lymphocytes # (Auto) 0.8 Thou/mm3 (1.0-4.8); Lymphocytes % (Auto) 7 % (10-50); Mean Corpuscular HGB Conc 34.0 g/dl (31.0-37.0); Mean Corpuscular Hemoglobin 29.8 pg (25.0-35.0); Mean Corpuscular Volume 88 fL (80-100); Monocytes # (Auto) 0.8 Thou/mm3 (0.0-0.8); Monocytes % (Auto) 6 % (0-12); Neutrophils # (Auto) 11.2 Thou/mm3 (1.8-7.7); Neutrophils % (Auto) 87 % (37-80); Nucleated Red Blood Cell # 0.00 Thou/mm3 (0.00-0.00); Nucleated Red Blood Cell % 0 /100 WBC (0); Platelet Count 310 Thou/mm3 (140-440); RDW Standard Deviation 39.2 fL (35.1-43.9); Red Blood Count 4.77 Miln/mm3 (4.50-5.90); White Blood Count 12.9 Thou/mm3 (3.8-10.6)
[2025-03-20 14:14] LABS: INR 1.1 (0.9-1.3); Prothrombin Time 11.6 Seconds (9.0-12.2)
[2025-03-20 14:16] LABS: Glucose Estimated Average 252 mg/dL (80-131); Hemoglobin A1C 10.4 % Hgb (4.8-6.0)
[2025-03-20 14:18] LABS: Sed Rate (ESR) 62 mm/hr (0-20)
[2025-03-20 14:34] LABS: Alanine Aminotransferase 8 U/L (10-49); Albumin, Serum 5.0 gm/dL (3.5-5.0); Albumin/Globulin Ratio 1.7 (1.2-2.2); Alkaline Phosphatase 112 U/L (46-116); Anion Gap 12 (7-16); Aspartate Amino Transferase 23 U/L (0-34); BUN/Creatinine Ratio 16 Ratio (12-20); Bilirubin,Total 0.5 mg/dL (0.3-1.2); Blood Urea Nitrogen 23 mg/dL (9-23); C-Reactive Protein 16.7 mg/dL (0.0-0.9); Calcium 9.9 mg/dL (8.3-10.6); Calcium (Corrected) 9.9 mg/dL (8.5-10.1); Carbon Dioxide 24.0 mMol/L (20.0-31.0); Chloride 92 mMol/L (98-107); Creatinine (Component) 1.4 mg/dL (0.6-1.3); Estimated Creatinine Clearance 62.7 mL/min (>60); Globulin 3.0 gm/dL (2.3-3.5); Glucose 314 mg/dL (74-106); Osmolality,Calculated 272 (275-295); Potassium 4.7 mMol/L (3.4-5.1); Procalcitonin 1.44 ng/ml (0.0-0.49); Sodium 128 mMol/L (136-145); Total Protein 8.0 gm/dL (5.7-8.2); eGFR 58 See Note
--- NOTE | 2025-03-20 15:25 | PD.EDANKLE ---
Lower Extremity Injury RME/HPI General Chief Complaint: Ankle/Foot Injury Stated Complaint: LEFT GREAT TOE BLACK/INFECTED x 3 DAYS Time Seen by Provider: 03/20/25 14:07 Arrival date/time: 59-year-old male patient with significant history of diabetes mellitus hypertension, came in for evaluation regarding left grade 2 gangrene. Patient noticed for the last 3 days associated with redness and swelling. Patient also complained of chills and shivering. On my initial evaluation patient was noted to be febrile. Denies any cough denies any abdominal pain denies any other complaints. Sepsis alert was initiated right away. Related Data Home Medications ?Medication ?Instructions ?Recorded ?Confirmed carvedilol 3.125 mg tablet 3.125 mg PO BID 10/07/23 10/07/23 duloxetine 60 mg capsule,delayed 60 mg PO QDAY 10/07/23 10/07/23 release empagliflozin 12.5 mg-metformin 1 tab PO BID 10/07/23 10/07/23 1,000 mg tablet (Synjardy) ferrous sulfate 325 mg (65 mg 325 mg PO MWF 10/07/23 10/07/23 iron) tablet (FeroSul) flecainide 100 mg tablet 100 mg PO BID 10/07/23 10/07/23 gabapentin 800 mg tablet 800 mg PO TID 10/07/23 10/07/23 ropinirole 1 mg tablet 1 mg PO TID 10/07/23 10/07/23 sildenafil 100 mg tablet (Viagra) 100 mg PO QDAY PRN erection 10/07/23 10/07/23 simvastatin 40 mg tablet 40 mg PO QPM 10/07/23 10/07/23 Previous Rx's ?Medication ?Instructions ?Recorded clindamycin HCl 300 mg capsule 300 mg PO Q8H #24 caps 10/08/23 meloxicam 7.5 mg tablet 7.5 mg PO QDAY #10 tabs 06/02/24 ondansetron 4 mg disintegrating 4 mg PO BID #14 tabs 06/02/24 tablet pantoprazole 20 mg tablet,delayed 20 mg PO QAM #30 tabs 06/02/24 release (Protonix) Allergies Allergy/AdvReac Type Severity Reaction Status Date / Time No Known Allergies Allergy Verified 03/20/25 13:16 Review of Systems Review of Systems Narrative Review of Systems: Review of system reviewed and within normal limits except mentioned in HPI ED Exam Narrative Physical exam: VITAL SIGNS: Reviewed. GENERAL APPEARANCE: Alert and interactive, follows commands, no acute distress, febrile HEAD AND FACE: Non-traumatic. ENT: PERRL, pink conjunctivitis, eyelid no trauma, Mucous membrane moist. NECK: Supple, nontender, no nuchal rigidity. CHEST: No tenderness, no crepitus, no paradoxical movement, no retractions. LUNGS: Clear, well ventilated, symmetric, no rales, no wheezing, no ronchi, no stridor, good breath sounds bilaterally. HEART: Regular rate, regular rhythm, no murmur, no gallops. ABDOMEN: Soft, positive bowel sounds, nondistended, no guarding, nontender, no rebound, no masses, RECTAL: Deferred. GENITAL: Deferred. NEUROLOGICAL: Gross motor function intact sensory function intact, Appropriate for age. MUSCULOSKELETAL: low back nontender, full range of motion. EXTREMITIES: Gangrene left great to full range of motion. Dorsalis pedis and posterior tibialis pulses +2 bounding bilateral lower extremity SKIN: Color pink, dry, no rash, no lacerations, no abrasions, no contusions. LYMPHATICS: Deferred. Course Quality Measures none Orders Category Date Time Status COVID-19 Screening Questionnaire NOW Care 03/20/25 15:37 Active Decision to Admit X1 Care 03/20/25 15:37 Active NPO NOW Care 03/20/25 15:30 Active Consult to General Surgery Stat Cons 03/20/25 15:24 Ordered Diet NPO (NOW) Diet 03/20/25 15:30 Active XR foot comp LT min 3V Stat Exams 03/20/25 13:34 Completed A1C [Glycohemoglobin w (eAG)] Stat Lab 03/20/25 13:51 Completed Beta Hydroxybutyrate Stat Lab 03/20/25 13:51 Completed Blood Culture (Lab) Stat Lab 03/20/25 13:51 Received CBC Stat Lab 03/20/25 13:51 Completed CMP [Comprehensive Metabolic Panel] Stat Lab 03/20/25 13:51 Completed CRP [C-Reactive Protein] Stat Lab 03/20/25 13:51 Completed ESR [Sed Rate (ESR)] Stat Lab 03/20/25 13:51 Completed Lactic Acid [Lactate (Lactic Acid)] Stat Lab 03/20/25 13:51 Results PT [Prothrombin Time with INR] Stat Lab 03/20/25 13:51 Completed Procalcitonin Stat Lab 03/20/25 13:51 Completed VBG [Venous Blood Gas] Stat Lab 03/20/25 13:51 Completed Acetaminophen Tab [Tylenol ES Tab] Med 03/20/25 15:23 Discontinued 1,000 mg PO X1 ONE Ibuprofen Tab [Motrin Tab] Med 03/20/25 15:23 Discontinued 800 mg PO X1 ONE Ketorolac Inj [Toradol Inj] Med 03/20/25 13:34 Discontinued 30 mg IM X1 ONE Piper/Tazo 3.375 gm Premix [Zosyn] Med 03/20/25 15:24 Active 3.375 gm in 50 ml IV X1 Ringers Lactated 1000 ml [Lactated Ringers] 1,000 ml Med 03/20/25 15:23 Active IV 999 mls/hr Vancomycin Inj 1,000 mg Med 03/20/25 15:24 Active Sodium Chloride 0.9% 250 ml [Ns] 250 ml IV X1 hydrALAZINE HCL [Apresoline] Med 03/20/25 15:29 Discontinued 25 mg PO X1 ONE Vital Signs Vital signs: Vital Signs Temperature 98.9 F 03/20/25 13:31 Pulse Rate 98 03/20/25 13:31 Respiratory Rate 18 03/20/25 13:31 Blood Pressure 123/62 03/20/25 13:31 Pulse Oximetry (%) 98 03/20/25 13:31 Oxygen Delivery Method Room Air 03/20/25 13:31 Extremity Injury, Lower MDM Narrative MDM Narrative:: 59-year-old male patient with significant history of diabetes mellitus hypertension, came in for evaluation regarding left grade 2 gangrene. Patient noticed for the last 3 days associated with redness and swelling. Patient also complained of chills and shivering. On my initial evaluation patient was noted to be febrile. Denies any cough denies any abdominal pain denies any other complaints. Sepsis alert was initiated right away. This patient was noted to be febrile. Patient was also noted to be having 12.10 leukocytosis, ESR 62, sodium 128 creatinine 1.4 blood sugar 314 with no sign of diabetic ketoacidosis. Lactic acid 2.1 C-reactive 16.7 Pro-Kenny 1.44 beta-hydroxybutyrate 1.6. X-ray of the foot showed osteomyelitis distal phalanx great toe. Patient was started on IV fluids, Tylenol Motrin, IV Zosyn and Vanco. I consulted Dr. Vargas, general surgeon on-call, placed the patient on n.p.o., per surgery tomorrow. Discussed with hospitalist who admitted the patient. Patient data External records reviewed:: None Clinical information provided by:: patient and family Social determinants that could affect healthcare access:: none Patient has the following chronic illnesses:: Diabetes mellitus, hypertension How is presenting disease/condition affected by chronic disease/condition?: exacerbated by Evaluation data The following diagnostics were reviewed and interpreted by me:: lab results and radiology exam(s) Lab and/or radiology exams considered but not ordered:: None Interpretation Summary: See MDM Medications / Prescriptions Medications or Prescriptions considered but not ordered:: None Medication administrations:: Medication Administration History Lactated Ringer's (Lactated Ringers) 1,000 mls @ 999 mls/hr IV .Q1H1M ONE Stop: 03/20/25 16:23 Piperacillin/Tazobactam/Dextrose (Zosyn) 3.375 gm in 50 mls @ 100 mls/hr IV X1 ONE; Protocol Stop: 03/20/25 15:53 Vancomycin HCl 1,000 mg/ (Sodium Chloride) 250 mls @ 150 mls/hr IV X1 ONE Stop: 03/20/25 17:03 Discontinued Medications Acetaminophen (Acetaminophen 500 Mg Tablet) 1,000 mg PO X1 ONE Stop: 03/20/25 15:24 Hydralazine HCl (Hydralazine Hcl 25 Mg Tablet) 25 mg PO X1 ONE Stop: 03/20/25 15:30 Ibuprofen (Ibuprofen Tab 400 Mg Tablet) 800 mg PO X1 ONE Stop: 03/20/25 15:24 Ketorolac Tromethamine (Ketorolac Inj 30 Mg/Ml Vial) 30 mg IM X1 ONE Stop: 03/20/25 13:35 Last Admin: 03/20/25 15:39 Dose: Not Given Documented By: EF Non-Admin Reason: Cancelled by Provider See MDM Consultations Consultation(s) initiated? (list below): Yes Consultation #1 (Physician, Specialty, Details): Dr. Vargas general surgeon on-call, discussed the case thank you DrLucila Diagnosis Extremity Injury, Lower Differential Diagnosis: other (Sepsis, diabetic foot infection diabetic gangrene toe) Most likely diagnosis given after review of the tests above:: Toe migraine, diabetes mellitus, sepsis Admission Indicated Admission indicated?: indicated Admission Request Was there a request for admission?: Yes Admission Attestation Admission request attestation: Discussed case with [Dr Koch] from Hospitalist service regarding admission. Discussed patients ED course, exam findings, labs, and radiology results. The Hospitalist [agrees}to accept the patient for admission. Disposition Plan Disposition Plan: Admit Discharge Plan Plan Patient Disposition: Admit Acute Care w/in Hospital Discharge Disposition comment: Stable Prescriptions/Referrals Prescriptions/Med Rec: No Action ondansetron 4 mg tablet,disintegrating 4 mg PO BID Qty: 14 0RF pantoprazole [Protonix] 20 mg tablet,delayed release (DR/EC) 20 mg PO QAM Qty: 30 0RF meloxicam 7.5 mg tablet 7.5 mg PO QDAY Qty: 10 0RF gabapentin 800 mg Tablet 800 mg PO TID Synjardy 12.5-1,000 mg Tablet 1 tab PO BID Rx Instructions: with food simvastatin 40 mg Tablet 40 mg PO QPM duloxetine 60 mg Capsule,Delayed Release(Dr/Ec) 60 mg PO QDAY ferrous sulfate [FeroSul] 325 mg (65 mg iron) Tablet 325 mg PO MWF Rx Instructions: Three Times Weekly For Restless Leg Syndrome carvedilol 3.125 mg Tablet 3.125 mg PO BID Rx Instructions: must administer with a meal/food flecainide 100 mg Tablet 100 mg PO BID Rx Instructions: flecainide acetate ropinirole 1 mg Tablet 1 mg PO TID sildenafil [Viagra] 100 mg Tablet 100 mg PO QDAY PRN (Reason: erection) Rx Instructions: administer 30 minutes to 4 hours before activity. Pt has not taken or has not needed for a while. clindamycin HCl 300 mg capsule 300 mg PO Q8H Qty: 24 0RF Referrals: Antwan Hood MD [Primary Care Provider, Family Practice] - In 1 week Problem List Clinical Impression: Sepsis, Toe gangrene, Diabetes mellitus Patient/Caregiver Discharge Instructions Print Language: Stateless Stand Alone Forms: Ana Award Info., Patient Portal Info Letter
[2025-03-20] MEDS: IBUPROFEN TAB 400 MG TABLET 800 MG PO (15:39)
[2025-03-20] MEDS: ACETAMINOPHEN 500 MG TABLET 1000 MG PO (15:40)
[2025-03-20] MEDS: PIPER/TAZO 3.375 GM PREMIX 3.375 GM/50 ML BAG IV (15:40)
[2025-03-20] MEDS: RINGERS LACTATED 1000 ML 1,000 ML 999 ML IV (15:41)
--- NOTE | 2025-03-20 15:47 | PD.SURCONS ---
HPI Consult details Consult date: 03/20/25 Reason for consultation narrative: Osteomyelitis and gangrene left great toe History of present illness: 59-year-old male with history of diabetes, hypertension, hyperlipidemia, A-fib presenting to the emergency department with worsening left first toe pain. His symptoms started about a week ago with some pain and swelling of his left first toe that has been getting progressively worse. He has significant edema and gangrenous changes of his left first toe. He denies history of trauma. X-ray revealed osteomyelitis. He was started on IV antibiotics and admitted for further management. 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 Review of Systems Constitutional Constitutional: Denies chills and Denies fever(s) Cardiovascular Cardiovascular: Denies chest pain Respiratory Respiratory: Denies cough Gastrointestinal Gastrointestinal: Denies abdominal pain, Denies nausea and Denies vomiting Hematologic/Lymphatic Hematologic/Lymphatic: Denies easy bleeding and Denies easy bruising Past Medical History Surgical History OTHER SURGICAL HX: Gastric bypass, multiple right toe amputations Social History SMOKING STATUS: Never smoker SUBSTANCE USE: marijuana and methamphetamine ALCOHOL: Former Meds Home Medications and Allergies Home Medications ?Medication ?Instructions ?Recorded ?Confirmed ?Type carvedilol 3.125 mg tablet 3.125 mg PO BID 10/07/23 03/20/25 History duloxetine 60 mg capsule,delayed 60 mg PO QDAY 10/07/23 03/20/25 History release empagliflozin 12.5 mg-metformin 1 tab PO BID 10/07/23 03/20/25 History 1,000 mg tablet (Synjardy) ferrous sulfate 325 mg (65 mg 325 mg PO MWF 10/07/23 03/20/25 History iron) tablet (FeroSul) flecainide 100 mg tablet 100 mg PO BID 10/07/23 03/20/25 History gabapentin 800 mg tablet 800 mg PO TID 10/07/23 03/20/25 History ropinirole 1 mg tablet 1 mg PO TID 10/07/23 03/20/25 History sildenafil 100 mg tablet (Viagra) 100 mg PO QDAY PRN erection 10/07/23 03/20/25 History simvastatin 40 mg tablet 40 mg PO QPM 10/07/23 03/20/25 History quetiapine 25 mg tablet 25 mg PO QDAY 03/20/25 03/20/25 History Allergies Allergy/AdvReac Type Severity Reaction Status Date / Time No Known Allergies Allergy Verified 03/20/25 13:16 Exam Vital Signs Temp Pulse Resp BP Pulse Ox O2 Del Method 101.7 F H 110 H 17 182/97 H 100 Room Air 03/20/25 15:40 03/20/25 15:40 03/20/25 15:17 03/20/25 15:40 03/20/25 15:17 03/20/25 15:17 Constitutional Constitutional: no acute distress Routine Extremities Exam Comments: He has palpable dorsalis pedis and posterior tibial pulses on the left. He has mild cellulitis. He has gangrene and significant edema of left first toe Results Results: Laboratory Laboratory results: results reviewed Results: Imaging Imaging narrative: Left foot xray images reviewed, radiologist's interpretation noted Assessment & Plan Additional Assessment Additional comments: Osteomyelitis and gangrene left great toe. Plan Continue IV antibiotics. Keep NPO after midnight tonight. Plan for transmetatarsal amputation of left first toe. Risks include but not limited to infection, bleeding, chronic nonhealing wound, possible progression of gangrene and or osteomyelitis to adjacent toes, possible need for future amputation discussed with the patient. Benefits and alternatives explained to him, all his questions answered, he agreed and consented to proceed with the operation.
--- NOTE | 2025-03-20 15:55 | ESHP_ITS ---
<Statement entered by Roderick Koch MD - 03/21/25 08:51> Mr Glover is a 59 year old male with past medical history significant for type 2 diabetes (a1c 10.4 on 03/20/25), A-fib on flecanide, hyperlipidemia, poly substance use disorder, gastric bypass in 2016, anxiety and depression presented to the emergency department on 03/20 after 2 days of moderate pain of the left great toe. Patient has poorly controlled type 2 diabetes and states often times he does not feel his feet and has been wearing the same socks for several weeks and has not changed it therefore did not know if anything was going on on his feet. And he cannot recall if he had an injury or stepped on anything. Patient states that he noticed that his dog was licking at his toe but because he did not remove his socks he did not visually see if anything was going on. Once he removed his socks yesterday he noticed his toe was swollen erythematous and the toenail was falling off. There is significant amount of erythema pus and edema on the left toe and it is painful. Patient did have episodes of fever and chills at night. Patient states he used to see a lead maintenance technician regularly but have not seen one for over a year and a half. foot x-ray shows Left foot cellulitis including great toe where there is osteomyelitis at the tuft of the distal phalanx. Very small thin linear radiodense foreign body at the webspace between the and third toes surgery is consulted patient would undergo surgery with Dr. Vargas tomorrow n.p.o. after midnight. Patient was seen and examined by me personally. I have directly supervised and reviewed documentation by the team resident and agree with its findings. ------- Plan of care was discussed with the attending, Dr. Vahe Koch, PGY-2 Documentation for date of: 03/20/25 HPI History of Present Illness Chief complaint: L great toe osteo and gangrene History of present illness: Mr Glover is a 59 year old gentleman with hx of poorly controlled t2dm (a1c 10.4), Afib on flecanide, HLD, poly substance use disorder, gastric bypass in 2016, poor nutritional intake, anxiety and depression who presented to the emergency department on 03/20 after 2 days of moderate pain of the left great toe. Patient states that he did not experience severe pain of his left toe and does not recall stubbing his toe or hitting his leg. He states that his dog Sissy he kept looking and smelling his toe which helped to prompt him to investigate what was going on with his toe. He finally removed his sock and noticed that his toenail was dangling off which he removed. He noted that the toe was swollen and he finally decided to present to the emergency department he endorses having fever and chills times night sweats at home. ROS Endorses fevers, chills, night sweats, poor appetite, weight loss, orthostatic hypotension Denies headache, vision changes, hemoptysis, nausea, vomiting, changes to bowel function Surgical history patient reports having gastric bypass surgery in 2016 Social history patient reports that he is going through a divorce started about a year ago due to issues with her children. Patient states that he is having a difficult time with his emotions and feels very depressed due to missing his . He currently lives with his mother who is handicapped, Liz, and his dog Siss. He reports intermittent methamphetamine use and occasional THC use which he notes stimulates his appetite Medications: Patient reports that he was previously taking all of his medications as prescribed however within the past week he ran out of his medications and has not since been able to take them. He states that he ran out of insulin for the past week. Patient is a send primary care doctor is at [facility]. ED course Vital signs notable for fever of 101.8, tachycardia Labs notable for elevated white blood cell 12.9 elevated ESR 62, elevated CRP 16.7, beta hydroxybutyrate 1.6, procalcitonin 1.44, UA bland, lactic acid 2.1, hemoglobin 10.4% Imaging notable for foot x-ray with Left foot cellulitis including great toe where there is osteomyelitis at the tuft of the distal phalanx. Very small thin linear radiodense foreign body at the webspace between the and third toes. Chronic fracture deformity of the distal aspect of the third metatarsal. Exam Vital Signs Temp Pulse Resp BP Pulse Ox O2 Del Method 101.7 F H 110 H 17 182/97 H 100 Room Air 03/20/25 15:40 03/20/25 15:40 03/20/25 15:17 03/20/25 15:40 03/20/25 15:17 03/20/25 15:17 Narrative Exam GENERAL: no acute distress, AAO x3, comfortably laying in bed, tearful HEENT: Head AT/ NC. temporal wasting Mucous membranes dry. poor dentition, NECK: Supple, no lymphadenopathy, no carotid bruits. CARDIOVASCULAR: RRR. Normal S1/S2, No m/r/g. No pitting edema of bilateral LEs. RESPIRATORY: CTAB. No wheezing, rhonchi, crackles. GASTROINTESTINAL: Abdomen soft, non tender no palpable masses. Bowel sounds present MUSCULOSKELETAL:? left anterior escobar with errythema and L great toe with marked edema and errythema. R foot with healed amputation scars. NEUROLOGICAL: CN II-XII grossly intact. No focal deficits. Sensation intact, symmetric. PSYCHIATRIC: Awake and alert, not agitated, depressed mood, anxious, and tearful SKIN: No obvious rashes, no jaundice, normal turgor. Results: Labs 03/21/25 05:42 03/21/25 05:42 Labs: Short CBC 03/20/25 Range/Units 13:51 WBC 12.9 H (3.8-10.6) Thou/mm3 Hgb 14.2 (13.5-16.0) g/dL Hct 41.8 (41.0-53.0) % Plt Count 310 (140-440) Thou/mm3 BMP 03/20/25 13:51 Sodium 128 L Potassium 4.7 Chloride 92 L Carbon Dioxide 24.0 BUN 23 Creatinine 1.4 H Glucose 314 H Calcium 9.9 Liver Function 03/20/25 Range/Units 13:51 Total Bilirubin 0.5 (0.3-1.2) mg/dL AST 23 (0-34) U/L ALT 8 L (10-49) U/L Alkaline Phosphatase 112 (46-116) U/L Albumin 5.0 (3.5-5.0) gm/dL ABG Interpretation ABG results: 03/20/25 13:51 VBG pH 7.40 VBG pCO2 42 VBG pO2 19 VBG Base Excess 1 Quality Measures Quality Measures VTE prophylaxis Medications Home Medications and Allergies Home Medications ?Medication ?Instructions ?Recorded ?Confirmed ?Type carvedilol 3.125 mg tablet 3.125 mg PO BID 10/07/23 History duloxetine 60 mg capsule,delayed 60 mg PO QDAY 4 03/20/25 History release empagliflozin 12.5 mg-metformin 1 tab PO BID 10/07/23 03/20/25 History 1,000 mg tablet (Synjardy) ferrous sulfate 325 mg (65 mg 325 mg PO MWF 10/07/23 1 05/20/24 History iron) tablet (FeroSul) flecainide 100 mg tablet 100 mg PO BID 10/07/2303/20 History gabapentin 800 mg tablet 800 mg PO TID 10/07/2303/20 History ropinirole 1 mg tablet 1 mg PO TID 10/07/23 5 History sildenafil 100 mg tablet (Viagra) 100 mg PO QDAY PRN e rection 10/07/23 03/20/25 History simvastatin 40 mg tablet 40 mg PO QPM 10/07/23 History quetiapine 25 mg tablet 25 mg PO QDAY 03/20/2503/20 History Allergies Allergy/AdvReac Type Severity Reaction Status Date / Time No Known Allergies Allergy Verified 03/20/25 13:16 Visit Medications Lactated Ringer's (Lactated Ringers) 1,000 mls @ 999 mls/hr IV .Q1H1M ONE Stop: 03/20/25 16:23 Last Admin: 03/20/25 15:41 Dose: 999 mls/hr Vancomycin HCl 1,000 mg/ (Sodium Chloride) 250 mls @ 150 mls/hr IV X1 ONE Stop: 03/20/25 17:03 Discontinued Medications Acetaminophen (Acetaminophen 500 Mg Tablet) 1,000 mg PO X1 ONE Stop: 03/20/25 15:24 Last Admin: 03/20/25 15:40 Dose: 1,000 mg Hydralazine HCl (Hydralazine Hcl 25 Mg Tablet) 25 mg PO X1 ONE Stop: 03/20/25 15:30 Last Admin: 03/20/25 15:40 Dose: 25 mg Piperacillin/Tazobactam/Dextrose (Zosyn) 3.375 gm in 50 mls @ 100 mls/hr IV X1 ONE; Protocol Stop: 03/20/25 15:53 Last Admin: 03/20/25 15:40 Dose: 100 mls/hr Ibuprofen (Ibuprofen Tab 400 Mg Tablet) 800 mg PO X1 ONE Stop: 03/20/25 15:24 Last Admin: 03/20/25 15:39 Dose: 800 mg Ketorolac Tromethamine (Ketorolac Inj 30 Mg/Ml Vial) 30 mg IM X1 ONE Stop: 03/20/25 13:35 Last Admin: 03/20/25 15:39 Dose: Not Given Assessment & Plan Plan Mr Glover is a 59 year old gentleman with hx of poorly controlled t2dm (a1c 10.4), Afib on flecanide, HLD, poly substance use disorder, gastric bypass in 2016, poor nutritional intake, anxiety and depression who presented with Left big toe wound who was found to have osteomyelitis and gangrene findings on xray of the foot, admitted for managment of osteomyelitis and gangrene with plan for amputation of the L great toe with Dr. Vargas. Osteomyelitis and gangrene of L toe CRP and ESR elevated wbc 12.9 Lactic Acid elevated likely 2/2 poor perfusion to the L toe pt states that due to his poorly controlled dm he was unable to feel or notice when he stubbed his toe. Plan - Vancomycin, pharmacy to dose (03/20- - Zosyn 4.5 q6hr (03/20- - APAP 650 for mild pain q6 prn - [place] 5-325 for moderate -severe pain q8hr po - NPO at midnight pending surgery with Dr. Vargas - cont IV fluids LR - wound care consulted Hyponatremia suspect chronic rather than acute given pt reported poor po intake Plan - Sodium checks 6hr - LR 85cc/hr MARCO pt endorses poor po intake, and some orthostasis, Likely that it is prerenal Cr 1.4 Plan - cont IV fluids with LR 85 cc/hr - avoid nephrotoxic agents - ctm renal fxn Afib pt states that he has run out of his medications for the past week and has been unable to take his medications as prescribed Plan - continue home flecinide 100 mg PO BID T2DM- poorly controlled A1c 10.4 Home meds: (empagliflozin/metformin) 12.09/999 mg BID PO Plan - Bedside glucose checks ACHS until fasted after midnight for surgery then q6hr - Step 1 ISS - hold home meds Protein Calorie Malnutrition Hx of Gastric bypass surgery in 2016 Starvation ketosis pt states he has poor appetite and uses thc smoking to stimulate appetite at times. Endorses feeling orthostatic when getting up to stand to urinate elevated B-hydroxybutrate, Plan - consult dietitian Tobacco Use disorder Methamphetamine Use disorder THC use pt endorses chewing tobacco and last meth use a few weeks ago. he regularly uses THC to stimulate his appetite pt denies any iv drug use Plan nicotine patch provide tobacco chewing cessation resources upon discharge if pt amenable Utox pending Peripheral Neuropathy continue home gabapentin 800 mg TID GERD home pantoprazole 20 mg PO qd Plan: - pantoprazole 40 qd HLD - simvistatin 40 PO hs Depression Anxiety pt [place] 5150 hold in july of 2023, he states that he has been very depressed for the past year due to a divorce. he has anhedonia and minimal motivation to do much Plan - cont home quetiapine 25 qhs Dispo: Med Surg Diet: Carb consitent Bowel Reg: senna docusate prn VTE ppx: heparin 5000 sc GI ppx: protonix 40 qd Code status: FULL Plan discussed with my attending Dr. Cotter and my senior resident Dr. Lianet Oconnor MD PGY1 Attending Provider Attestation/Addendum I, Viola Cotter DO, attest that I was physically present for the cano portions of the service and evaluated the patient with the resident and I reviewed and discussed the case with the resident and agree with the resident's findings and plans of care as documented above Patient is a 59-year-old male with past medical history of type 2 diabetes, hyperlipidemia, polysubstance use, gastric bypass, peripheral neuropathy presented to the ED due to pain in his left big toe. Big toe was noted to have dry gangrene and is very edematous with open skin lesion on the proximal tip of the big toe and erythema. Patient states that he did not note this lesion until his dog was noted to have increased in shortness in his left foot. Patient states that he usually wears black socks at home and does not take them off. He denies fevers, chills, nausea, vomiting, shortness of breath, chest pain otherwise. In the ED however, patient was noted to have a temperature of 101.7, tachycardia 110 elevated blood pressure 182/97. Patient reports that he usually has low blood pressure.. Patient has elevation of beta-hydroxybutyrate 0.6 and lactic acid of 2.1. Sodium is also noted to be 128. Blood glucose was 252. Patient reports that he used to have poor p.o. intake. Suspect some starvation ketosis leading to the slight elevation of beta-hydroxybutyrate. No anion gap or metabolic acidosis needed. He is noted to have a mild MARCO with a creatinine of 1.4 with baseline of 1.0. Patient reports that he has been out of medication and has not been taking his flecainide or his oral hypoglycemic medications. An x-ray of the foot was done in the ED showing left foot cellulitis including the great toe where there is osteomyelitis of the tuft of the distal phalanx. There is a small linear radiodense foreign body at the webspace between the 2nd and 3rd toes. There is also a chronic fracture deformity of the distal aspect of the third metatarsal. Patient does not recall stepping on any foreign bodies that may have led to this injury. He does note that his toenail fell off about 1 month ago. He does not recall any trauma at the site of injury either. Surgeon was called from the ED and plans for surgery tomorrow. Will start patient on IV antibiotics including vancomycin and Zosyn. Will keep patient n.p.o. after midnight for anticipated surgery. Will admit patient to med/surg for further workup and medical management of sepsis secondary to osteomyelitis and gangrene Of the left great toe as patient was noted to have mild hypotension in the ED with MAP of 69 and a acute kidney injury with creatinine of 1.4.
[2025-03-20] MEDS: Vancomycin Inj 1,000 MG in SODIUM CHLORIDE 0.9% 250 ML 250 ML 150 MG IV (15:59)
[2025-03-20 16:15] LABS: Collection Type, Urine Voided
[2025-03-20 16:28] LABS: Bacteria,Urine Rare; Bilirubin,Urine Negative (Negative); Blood,Urine 2+ (Negative); Clarity,Urine Clear (Clear/Hazy); Color,Urine Lt-Yellow (Lt Yel-Yel); Culture Indicated,Urine Not Indicated; Glucose, Urine 4+ (Negative); Ketones,Urine 1+ (Negative); Leukocyte Esterase,Urine Negative (Negative); Nitrite,Urine Negative (Negative); PH,Urine 6.0 (5.0-7.0); Protein,Urine 1+ (Neg - Trace); RBC,Urine 1 /hpf (0-3); Specific Gravity,Urine 1.033 (1.001-1.035); Squamous Epithelial Cell,Urine < 1 /hpf (0-5); Urobilinogen,Urine Negative mg/dL (0.0-1.0); WBC,Urine 2 /hpf (0-5)
[2025-03-20 16:58] LABS: Reflex Lactate? Y
[2025-03-20 17:41] LABS: Lactic Acid, 3 HR 1.6 mMol/L (0.4-2.0)
[2025-03-20 18:05] LABS: Sodium 130 mMol/L (136-145)
[2025-03-20] MEDS: RINGERS LACTATED 1000 ML 1,000 ML 85 ML IV (18:06)
[2025-03-20] MEDS: NICOTINE PATCH 14 MG/24 HR PATCH.TD24 TOP (18:07)
[2025-03-20] MEDS: INSULIN LISPRO (AdmeLOG) 1 UNIT/0.01 ML UNIT SC (18:08)
[2025-03-20] MEDS: HEPARIN SOD INJ 5000 UNIT/ML VIAL SC (21:18)
[2025-03-20] MEDS: GABAPENTIN 200 MG, GABAPENTIN 600 MG 800 MG PO (21:19)
[2025-03-20] MEDS: FLECAINIDE ACET 50 MG TABLET 100 MG PO (21:19)
[2025-03-20] MEDS: PIPER/TAZO INJ 4.5 GM in SODIUM CHLORIDE 0.9% (POP) 100 ML IV (22:30)
[2025-03-21] VITALS (15 sets, daily range): BP systolic 100–131; BP diastolic 58–87; PULSE 74–89; RESP 15–22; TEMP 36.2–38.1; O2SAT 94–100; BMI 23.1
[2025-03-21 00:54] LABS: Lactate (Lactic Acid) 1.2 mMol/L (0.4-2.0)
[2025-03-21 01:08] LABS: Sodium 136 mMol/L (136-145)
[2025-03-21] MEDS: INSULIN LISPRO (AdmeLOG) 1 UNIT/0.01 ML UNIT SC (01:11)
[2025-03-21] MEDS: PIPER/TAZO INJ 4.5 GM in SODIUM CHLORIDE 0.9% (POP) 100 ML IV ×3 (05:08→18:14)
[2025-03-21] MEDS: RINGERS LACTATED 1000 ML 1,000 ML 85 ML IV ×2 (05:08→18:27)
[2025-03-21] MEDS: GABAPENTIN 200 MG, GABAPENTIN 600 MG 800 MG PO ×3 (05:09→21:45)
[2025-03-21] MEDS: HYDROcodone/APAP 5/325 TABLET 1 TAB PO (05:59)
[2025-03-21 06:00] LABS: Lactate (Lactic Acid) 1.3 mMol/L (0.4-2.0)
[2025-03-21 06:04] LABS: Basophils # (Auto) 0.1 Thou/mm3 (0.0-0.2); Basophils % (Auto) 0 % (0-2.5); Eosinophils # (Auto) 0.1 Thou/mm3 (0.0-0.5); Eosinophils % (Auto) 1 % (0-10); Hematocrit 38.2 % (41.0-53.0); Hemoglobin 13.1 g/dL (13.5-16.0); Immature Granulocytes Auto 0.04 Thou/mm3 (0.00-0.00); Lymphocytes # (Auto) 1.0 Thou/mm3 (1.0-4.8); Lymphocytes % (Auto) 8 % (10-50); Mean Corpuscular HGB Conc 34.3 g/dl (31.0-37.0); Mean Corpuscular Hemoglobin 29.8 pg (25.0-35.0); Mean Corpuscular Volume 87 fL (80-100); Monocytes # (Auto) 1.2 Thou/mm3 (0.0-0.8); Monocytes % (Auto) 10 % (0-12); Neutrophils # (Auto) 9.4 Thou/mm3 (1.8-7.7); Neutrophils % (Auto) 80 % (37-80); Nucleated Red Blood Cell # 0.00 Thou/mm3 (0.00-0.00); Nucleated Red Blood Cell % 0 /100 WBC (0); Platelet Count 266 Thou/mm3 (140-440); RDW Standard Deviation 39.3 fL (35.1-43.9); Red Blood Count 4.40 Miln/mm3 (4.50-5.90); White Blood Count 11.7 Thou/mm3 (3.8-10.6)
[2025-03-21 06:17] LABS: INR 1.1 (0.9-1.3); Prothrombin Time 11.8 Seconds (9.0-12.2)
[2025-03-21 06:26] LABS: Alanine Aminotransferase 8 U/L (10-49); Albumin, Serum 4.1 gm/dL (3.5-5.0); Albumin/Globulin Ratio 1.4 (1.2-2.2); Alkaline Phosphatase 96 U/L (46-116); Anion Gap 10 (7-16); Aspartate Amino Transferase 21 U/L (0-34); BUN/Creatinine Ratio 18 Ratio (12-20); Bilirubin,Total 0.2 mg/dL (0.3-1.2); Blood Urea Nitrogen 20 mg/dL (9-23); Calcium 9.5 mg/dL (8.3-10.6); Calcium (Corrected) 9.5 mg/dL (8.5-10.1); Carbon Dioxide 27.0 mMol/L (20.0-31.0); Chloride 101 mMol/L (98-107); Creatinine (Component) 1.1 mg/dL (0.6-1.3); Estimated Creatinine Clearance 80.3 mL/min (>60); Globulin 3.0 gm/dL (2.3-3.5); Glucose 150 mg/dL (74-106); Magnesium 2.1 mg/dL (1.6-2.6); Osmolality,Calculated 281 (275-295); Phosphorous 3.1 mg/dL (2.4-5.1); Potassium 4.3 mMol/L (3.4-5.1); Sodium 138 mMol/L (136-145); Total Protein 7.1 gm/dL (5.7-8.2); eGFR > 60 See Note
--- NOTE | 2025-03-21 08:01 | ESPR_ITS ---
<Statement entered by Roderick Koch MD - 03/21/25 16:32> Patient is seen at bedside. Currently is n.p.o. for amputation of left big toe with Dr. Vargas. Patient denies any pain however he feels very anxious. Patient is a active smoker therefore will order nicotine patch. Will continue IV antibiotics. Case Patient was seen and examined by me personally. I have directly supervised and reviewed documentation by the team resident and agree with its findings. ------- Plan of care was discussed with the attending, Dr. Vahe Koch, PGY-2 Documentation for date of: 03/21/25 Subjective Subjective Interval history: NPO pending L toe amputation with Dr. Vargas pt endorses some anxiety nicotine patches qd Exam Vital Signs Temp Pulse Resp BP Pulse Ox O2 Del Method 99.2 F 88 18 109/59 L 94 L Room Air 03/21/25 04:00 03/21/25 04:00 03/21/25 04:00 03/21/25 04:00 03/21/25 04:00 03/21/25 04:00 Narrative Exam GENERAL: no acute distress, AAO x3, comfortably laying in bed, tearful HEENT: Head AT/ NC. temporal wasting Mucous membranes dry. poor dentition, NECK: Supple, no lymphadenopathy, no carotid bruits. CARDIOVASCULAR: RRR. Normal S1/S2, No m/r/g. No pitting edema of bilateral LEs. RESPIRATORY: CTAB. No wheezing, rhonchi, crackles. GASTROINTESTINAL: Abdomen soft, non tender no palpable masses. Bowel sounds present MUSCULOSKELETAL:? left anterior escobar with errythema and L great toe with marked edema and errythema. R foot with healed amputation scars. NEUROLOGICAL: CN II-XII grossly intact. No focal deficits. Sensation intact, symmetric. PSYCHIATRIC: Awake and alert, not agitated, anxious but less depressed mood and less tearful SKIN: No obvious rashes, no jaundice, normal turgor. Objective Labs 03/21/25 05:42 03/21/25 12:35 Labs: Laboratory Results - last 24 hr 03/20/25 03/20/25 03/20/25 13:51 16:06 17:27 WBC 12.9 H RBC 4.77 Hgb 14.2 Hct 41.8 MCV 88 MCH 29.8 MCHC 34.0 RDW Std Deviation 39.2 Plt Count 310 Neut % (Auto) 87 H Lymph % (Auto) 7 L [place] % (Auto) 6 Eos % (Auto) 0 Baso % (Auto) 0 Neut # (Auto) 11.2 H Lymph # (Auto) 0.8 L [place] # (Auto) 0.8 Eos # (Auto) 0.0 Baso # (Auto) 0.0 Immature Gran # (Auto) 0.04 H Absolute Nucleated RBC 0.00 Immature Gran % 0 Nucleated RBC % 0 ESR 62 H PT 11.6 INR 1.1 VBG pH 7.40 VBG pCO2 42 VBG pO2 19 VBG O2 Sat (Kelsey) 33 L VBG Base Excess 1 Sodium 128 L 130 L Potassium 4.7 Chloride 92 L Carbon Dioxide 24.0 Anion Gap 12 BUN 23 Creatinine 1.4 H Estim Creat Clear Calc 62.7 eGFR 58 L BUN/Creatinine Ratio [address] Glu mg/dL 252 H Hemoglobin A1c 10.4 H Calculated Osmolality 272 L Lactic Acid 2.1 H 1.6 Calcium 9.9 Corrected Calcium 9.9 Phosphorus Magnesium Total Bilirubin 0.5 AST 23 ALT 8 L Alkaline Phosphatase 112 C-Reactive Prot, Quant 16.7 H Total Protein 8.0 Albumin 5.0 Globulin 3.0 Albumin/Globulin Ratio 1.7 Beta-Hydroxybutyrate/Acetoacetate 1.6 H Procalcitonin 1.44 H Ur Collection Type Voided Urine Color Lt-Yellow Urine Clarity Clear Urine pH 6.0 Ur Specific [place] 1.033 Urine Protein 1+ A Urine Glucose (UA) 4+ A Urine Ketones 1+ A Urine Blood 2+ A Urine Nitrite Negative Urine Bilirubin Negative Urine Urobilinogen (Auto) Negative Ur Leukocyte Esterase Negative Urine RBC 1 Urine WBC 2 Ur Squamous Epith Cells < 1 Urine Bacteria Rare Ur Culture Indicated? Not Indicated 03/21/25 03/21/25 00:42 05:42 WBC 11.7 H RBC 4.40 L Hgb 13.1 L Hct 38.2 L MCV 87 MCH 29.8 MCHC 34.3 RDW Std Deviation 39.3 Plt Count 266 D Neut % (Auto) 80 Lymph % (Auto) 8 L [place] % (Auto) 10 Eos % (Auto) 1 Baso % (Auto) 0 Neut # (Auto) 9.4 H Lymph # (Auto) 1.0 [place] # (Auto) 1.2 H Eos # (Auto) 0.1 Baso # (Auto) 0.1 Immature Gran # (Auto) 0.04 H Absolute Nucleated RBC 0.00 Immature Gran % 0 Nucleated RBC % 0 ESR PT 11.8 INR 1.1 VBG pH VBG pCO2 VBG pO2 VBG O2 Sat (Kelsey) VBG Base Excess Sodium 136 138 Potassium 4.3 Chloride 101 Carbon Dioxide 27.0 Anion Gap 10 BUN 20 Creatinine 1.1 Estim Creat Clear Calc 80.3 eGFR > 60 BUN/Creatinine Ratio 18 [address]ucose [address] Glu mg/dL Hemoglobin A1c Calculated Osmolality 281 Lactic Acid 1.2 1.3 Calcium 9.5 Corrected Calcium 9.5 Phosphorus 3.1 Magnesium 2.1 Total Bilirubin 0.2 L AST 21 ALT 8 L Alkaline Phosphatase 96 C-Reactive Prot, Quant Total Protein 7.1 Albumin 4.1 D Globulin 3.0 Albumin/Globulin Ratio 1.4 Beta-Hydroxybutyrate/Acetoacetate Procalcitonin Ur Collection Type Urine Color Urine Clarity Urine pH Ur Specific [place] Urine Protein Urine Glucose (UA) Urine Ketones Urine Blood Urine Nitrite Urine Bilirubin Urine Urobilinogen (Auto) Ur Leukocyte Esterase Urine RBC Urine WBC Ur Squamous Epith Cells Urine Bacteria Ur Culture Indicated? ABG Interpretation ABG results: 03/20/25 13:51 VBG pH 7.40 VBG pCO2 42 VBG pO2 19 VBG Base Excess 1 Quality Measures Quality Measures VTE prophylaxis Assessment & Plan Assessment Current Active Medications: Generic Name Dose Route Start Last Admin Trade Name Freq PRN Reason Stop Dose Admin Acetaminophen 650 mg 03/20/25 16:46 Acetaminophen 325 Mg Tablet PO 04/19/25 16:45 Q6H PRN PAIN SCALE 1-3 (mild Acetaminophen 650 mg 03/20/25 16:54 Acetaminophen 325 Mg Tablet PO 04/19/25 16:53 Q6H PRN Fever >101.5 Hydrocodone Bitart/Acetaminophen 1 tab 03/20/25 17:48 03/21/25 05:59 Hydrocodone/Apap 5/325 Tablet PO 03/25/25 17:47 1 tab Q8HR PRN Administration Pain 7-10 Dextrose 25 ml 03/20/25 16:51 Dextrose 50%-Water Inj 50 Ml Syringe IV 04/19/25 16:50 Q15MIN PRN BG 50-70 responsive npo pt Dextrose 50 ml 03/20/25 16:51 Dextrose 50%-Water Inj 50 Ml Syringe IV 04/19/25 16:50 Q15MIN PRN BG <50 OR BG <70 & pt unresponsive Flecainide Acetate 100 mg 03/20/25 21:00 03/20/25 21:19 Flecainide Acet 50 Mg Tablet PO 04/19/25 20:59 100 mg BID ANISA Administration Gabapentin 200 mg/ Gabapentin 800 mg 03/20/25 22:00 03/21/25 05:09 600 mg PO 04/19/25 21:59 800 mg TID ANISA Administration Glucagon 1 mg 03/20/25 16:51 Glucagon Inj 1 Mg Vial IM Q15MIN PRN BG <70, and no IV access Heparin Sodium (Porcine) 5,000 unit 03/20/25 21:00 03/20/25 21:18 Heparin Sod Inj 5000 Unit/Ml Vial SC 04/03/25 20:59 5,000 unit Q12HR ANISA Administration Lactated Ringer's 1,000 mls @ 85 mls/hr 03/20/25 17:00 03/21/25 05:08 Lactated Ringers IV 04/19/25 16:59 85 mls/hr .[id number] ANISA Administration Piperacillin Sod/Tazobactam 100 mls @ 200 mls/hr 03/20/25 22:00 03/21/25 05:08 Sod 4.5 gm/ Sodium Chloride IV 03/27/25 21:59 200 mls/hr Q6HR ANISA Administration Protocol Vancomycin/Sodium Chloride 750 mg in 150 mls @ 120 mls/hr 03/21/25 10:00 Vancomycin/Ns 750 Mg Ivpb IV 03/28/25 09:59 Q12H [facility] Protocol Insulin Human Lispro 0 unit 03/20/25 18:00 03/21/25 05:24 Insulin Lispro (Admelog) 1 Unit/0.01 Ml Unit SC 04/19/25 17:59 Not Given Q6HR [facility] Protocol Ondansetron HCl 4 mg 03/20/25 16:46 Ondansetron Inj 2 Mg/Ml Inj 2 Ml IVP 04/19/25 16:45 Q6H PRN NAUSEA OR VOMITING Protocol Pantoprazole Sodium 40 mg 03/21/25 09:00 Pantoprazole 40 Mg Tablet PO 12/07/25 08:59 QDAY [facility] Pharmacy Consult 1 each 03/21/25 09:00 Vancomycin Pharmacy To Dose 1 Each Each IV 04/20/25 08:59 QDAY ANISA Quetiapine Fumarate 25 mg 03/20/25 21:00 03/20/25 21:19 Quetiapine Fumarate 25 Mg Tablet PO 04/19/25 20:59 25 mg HS [facility] Administration Sennosides 1 tab 03/20/25 17:42 Senna/Docusate Sod 1 Tab Tablet PO 04/19/25 17:41 QDAY PRN CONSTIPATION Protocol Plan Mr Glover is a 59 year old gentleman with hx of poorly controlled t2dm (a1c 10.4), Afib on flecanide, HLD, poly substance use disorder, gastric bypass in 2016, poor nutritional intake, anxiety and depression who presented with Left big toe wound who was found to have osteomyelitis and gangrene findings on xray of the foot, admitted for managment of osteomyelitis and gangrene with plan for amputation of the L great toe with Dr. Vargas. Osteomyelitis and gangrene of L toe CRP and ESR elevated wbc 12.9 Lactic Acid elevated likely 2/2 poor perfusion to the L toe pt states that due to his poorly controlled dm he was unable to feel or notice when he stubbed his toe. pending amputation with Sam today Plan - Vancomycin, pharmacy to dose (03/20- - Zosyn 4.5 q6hr (03/20- - APAP 650 for mild pain q6 prn - [place] 5-325 for moderate -severe pain q8hr po - NPO pending surgery with Dr. Vargas - cont IV fluids LR - wound care consulted Hyponatremia suspect chronic rather than acute given pt reported poor po intake Plan - Sodium checks 6hr - LR 85cc/hr MARCO - resolving pt endorses poor po intake, and some orthostasis, Likely that it is prerenal Cr 1.4 Plan - cont IV fluids with LR 85 cc/hr - avoid nephrotoxic agents - ctm renal fxn Afib pt states that he has run out of his medications for the past week and has been unable to take his medications as prescribed Plan - continue home flecinide 100 mg PO BID T2DM- poorly controlled A1c 10.4 Home meds: (empagliflozin/metformin) 12.09/999 mg BID PO Plan - Bedside glucose checks ACHS until fasted after midnight for surgery then q6hr - Step 1 ISS - hold home meds Protein Calorie Malnutrition Hx of Gastric bypass surgery in 2016 Starvation ketosis pt states he has poor appetite and uses thc smoking to stimulate appetite at times. Endorses feeling orthostatic when getting up to stand to urinate elevated B-hydroxybutrate, Plan - consult dietitian Tobacco Use disorder Methamphetamine Use disorder THC use pt endorses chewing tobacco and last meth use a few weeks ago. he regularly uses THC to stimulate his appetite pt denies any iv drug use Plan nicotine patch 14 qd provide tobacco chewing cessation resources upon discharge if pt amenable Utox pending Peripheral Neuropathy continue home gabapentin 800 mg TID GERD home pantoprazole 20 mg PO qd Plan: - pantoprazole 40 qd HLD - simvistatin 40 PO hs Depression Anxiety pt [place] 5150 hold in july of 2023, he states that he has been very depressed for the past year due to a divorce. he has anhedonia and minimal motivation to do much Plan - cont home quetiapine 25 qhs Dispo: Med Surg Diet: npo pending surgery today Bowel Reg: senna docusate prn VTE ppx: HOLD heparin 5000 sc in setting of surgery GI ppx: protonix 40 qd Code status: FULL Plan discussed with my attending Dr. Cotter and my senior resident Dr. Lianet Koch Attending Provider Attestation/Addendum I, Viola Cotter DO, attest that I was physically present for the cano portions of the service and evaluated the patient with the resident and I reviewed and discussed the case with the resident and agree with the resident's findings and plans of care as documented above Patient seen and eval this a.m. No acute events overnight. He states that he is feeling well, but anxious. Will place nicotine patch as he is likely having cravings resulting in anxiety. He is scheduled for amputation of his left great toe this afternoon. Will follow-up with operative report. Will continue with antibiotics at this time.
[2025-03-21] MEDS: VANCOMYCIN/NS 750 MG IVPB 750 MG/150 ML BAG 120 MG IV ×2 (09:12→21:45)
[2025-03-21] MEDS: FLECAINIDE ACET 50 MG TABLET 100 MG PO ×2 (09:12→21:42)
[2025-03-21] MEDS: PANTOPRAZOLE 40 MG TABLET PO (09:13)
[2025-03-21 12:55] LABS: Lactate (Lactic Acid) 1.1 mMol/L (0.4-2.0)
[2025-03-21 13:08] LABS: Sodium 137 mMol/L (136-145)
[2025-03-21] MEDS: LORazepam 2 MG/ML VIAL 0.5 MG IVP (13:41)
[2025-03-21] MEDS: ACETAMINOPHEN 325 MG TABLET 650 MG PO (18:26)
--- NOTE | 2025-03-21 19:53 | ESOP_ITS ---
Date of Procedure 03/21/25 Pre Op Diagnosis Gangrene and osteomyelitis left first toe Post Op Diagnosis Gangrene and osteomyelitis of left first toe Procedure Transmetatarsal amputation of left first toe Findings Gangrene with significant edema of left first toe Procedure Description Patient brought into the operating room in supine position. After administration of left ankle block and monitored anesthesia care, patient's left foot prepped and draped in standard surgical manner. Patient was noted to have gangrenous and edematous left first toe. An elliptical incision was made around the first toe and dissection was deepened into soft tissue. Underlying tendinous attachments were divided. The distal metatarsal head was divided with a bone cutter and transmetatarsal amputation performed. Patient was noted to have excellent blood flow with pulsating arterial bleeding that was ligated. The wound was washed and irrigated with Betadine mixed with peroxide and saline and further washed with warm saline. There was no evidence of purulent drainage or abscess. Incision was closed with interrupted sutures using 2-0 nylon. Pr essure dressings applied. Patient tolerated the procedure well. He was breathing spontaneously and without difficulty and was transferred to postanesthesia care in stable condition. Instruments, needles and sponge counts were reported to be correct x 2. Anesthesia MAC, regional (Ankle block) and local Pathology / specimen Other (Left first toe) Estimated Blood Loss 25 Condition Stable Disposition PACU Surgeon Yeimi Vargas MD Surgical Staff Operation Date: 03/21/25 13:15 Case Staff Anesthesiologist: Americo Thornton
--- NOTE | 2025-03-21 20:39 | SUR.PHASEI ---
2030 patient is awake, alert, breathing unlabored, s/p left toe amputation, dressing to left foot dry with no bleeding, report received from Juanpablo HUNTER and Dr. Thornton.
--- NOTE | 2025-03-21 21:00 | SUR.PHASEI ---
2100 patient is awake, alert, breathing unlabored, dressing dry with no bleeding, report given to Bridgette HUNTER, patient transferred back to room 379
[2025-03-21] MEDS: ASCORBIC ACID 250 MG TABLET 500 MG PO (21:44)
[2025-03-21] MEDS: DOCUSATE SOD 100 MG CAPSULE PO (21:44)
[2025-03-22] VITALS (10 sets, daily range): BP systolic 100–136; BP diastolic 54–71; PULSE 62–82; RESP 17–96; TEMP 36.1–36.7; O2SAT 95–98
[2025-03-22] MEDS: PIPER/TAZO INJ 4.5 GM in SODIUM CHLORIDE 0.9% (POP) 100 ML IV ×5 (00:02→23:50)
[2025-03-22] MEDS: INSULIN LISPRO (AdmeLOG) 1 UNIT/0.01 ML UNIT SC ×4 (00:12→20:42)
[2025-03-22] MEDS: GABAPENTIN 200 MG, GABAPENTIN 600 MG 800 MG PO ×3 (05:34→21:44)
[2025-03-22 06:17] LABS: Basophils # (Auto) 0.1 Thou/mm3 (0.0-0.2); Basophils % (Auto) 1 % (0-2.5); Eosinophils # (Auto) 0.2 Thou/mm3 (0.0-0.5); Eosinophils % (Auto) 2 % (0-10); Hematocrit 35.9 % (41.0-53.0); Hemoglobin 11.9 g/dL (13.5-16.0); Immature Granulocytes Auto 0.02 Thou/mm3 (0.00-0.00); Lymphocytes # (Auto) 1.5 Thou/mm3 (1.0-4.8); Lymphocytes % (Auto) 21 % (10-50); Mean Corpuscular HGB Conc 33.1 g/dl (31.0-37.0); Mean Corpuscular Hemoglobin 29.0 pg (25.0-35.0); Mean Corpuscular Volume 88 fL (80-100); Monocytes # (Auto) 0.9 Thou/mm3 (0.0-0.8); Monocytes % (Auto) 12 % (0-12); Neutrophils # (Auto) 4.6 Thou/mm3 (1.8-7.7); Neutrophils % (Auto) 63 % (37-80); Nucleated Red Blood Cell # 0.00 Thou/mm3 (0.00-0.00); Nucleated Red Blood Cell % 0 /100 WBC (0); Platelet Count 294 Thou/mm3 (140-440); RDW Standard Deviation 39.8 fL (35.1-43.9); Red Blood Count 4.10 Miln/mm3 (4.50-5.90); White Blood Count 7.3 Thou/mm3 (3.8-10.6)
[2025-03-22 07:16] LABS: Alanine Aminotransferase 11 U/L (10-49); Albumin, Serum 4.0 gm/dL (3.5-5.0); Albumin/Globulin Ratio 1.6 (1.2-2.2); Alkaline Phosphatase 95 U/L (46-116); Anion Gap 11 (7-16); Aspartate Amino Transferase 23 U/L (0-34); BUN/Creatinine Ratio 21 Ratio (12-20); Bilirubin,Total < 0.2 mg/dL (0.3-1.2); Blood Urea Nitrogen 21 mg/dL (9-23); Calcium 9.3 mg/dL (8.3-10.6); Calcium (Corrected) 9.3 mg/dL (8.5-10.1); Carbon Dioxide 25.7 mMol/L (20.0-31.0); Chloride 103 mMol/L (98-107); Creatinine (Component) 1.0 mg/dL (0.6-1.3); Estimated Creatinine Clearance 88.4 mL/min (>60); Globulin 2.5 gm/dL (2.3-3.5); Glucose 158 mg/dL (74-106); Magnesium 2.2 mg/dL (1.6-2.6); Osmolality,Calculated 285 (275-295); Phosphorous 3.3 mg/dL (2.4-5.1); Potassium 3.9 mMol/L (3.4-5.1); Sodium 140 mMol/L (136-145); Total Protein 6.5 gm/dL (5.7-8.2); eGFR > 60 See Note
--- NOTE | 2025-03-22 08:28 | PD.SURPROG ---
Documentation for date of: 03/22/25 Subjective Subjective Narrative: Patient is seen and examined. He is resting comfortably, his pain is controlled Exam Vital Signs Temp Pulse Resp BP Pulse Ox O2 Del Method O2 Flow Rate 97.8 F 73 18 121/65 98 Room Air 2 03/22/25 04:00 03/22/25 04:00 03/22/25 04:00 03/22/25 04:00 03/22/25 04:00 03/22/25 04:00 03/21/25 20:45 Constitutional Constitutional: no acute distress Routine Extremities Exam Comments: Left foot amputation site with dressings clean, dry and intact Assessment & Plan Assessment Additional comments: Postop day #1 status post transmetatarsal amputation of left first toe Plan Continue IV antibiotics. Keep dressings intact, will remove dressings on postop day #3. No weightbearing on left lower extremity PROCEDURES: Procedures Transmetatarsal amputation of left first toe
[2025-03-22] MEDS: FLECAINIDE ACET 50 MG TABLET 100 MG PO (08:46)
[2025-03-22] MEDS: NICOTINE PATCH 14 MG/24 HR PATCH.TD24 TOP (08:47)
[2025-03-22] MEDS: PANTOPRAZOLE 40 MG TABLET PO (08:48)
[2025-03-22] MEDS: ASCORBIC ACID 250 MG TABLET 500 MG PO ×2 (08:48→20:37)
[2025-03-22] MEDS: ZINC SULFATE 220 MG CAPSULE PO (08:48)
[2025-03-22 09:33] LABS: Vancomycin,Trough 10.6 mcg/mL (5.0-10.0)
[2025-03-22] MEDS: VANCOMYCIN/NS 750 MG IVPB 750 MG/150 ML BAG 120 MG IV ×2 (10:58→21:46)
--- NOTE | 2025-03-22 11:20 | PC.SS ---
Quentin Glover is a 59 year-old male admitted to NH for Osteomyelitis and Gangrene. SS conducted bedside contact with the patient to complete initial assessment and to discuss discharge planning. Role and reason explained. Patient confirmed demographic information. Patient identifies his friend Jose Armando Dumont [phone] as his surrogate decision maker. Pt states he is able to complete all ADL?s independent. Pt does not possesses any DME. Pts PCP is EDGAR Hood. Pharmacy of choice is [email or web address]. Discharge options discussed and the pt wishes to return home.? Pt friend will provide transport. No further intervention required at this time, social and political studies professor would be available to address any further concerns. DC plan: Home DM: friend PCP: [facility]
--- NOTE | 2025-03-22 14:45 | PC.SS ---
Rounding: POD #1, plan to DC Monday home
[2025-03-22] MEDS: HYDROcodone/APAP 5/325 TABLET 1 TAB PO (15:40)
--- NOTE | 2025-03-22 19:05 | ESPR_ITS ---
Documentation for date of: 03/22/25 Subjective Subjective Interval history: Patient seen and examined at bedside. Patient is postop day #1 status post transmetatarsal amputation of left first toe. His pain is well-controlled. Will continue IV antibiotics and start his home Zoloft medication. Surgery plans to remove dressings on postop day 3. Exam Vital Signs Temp Pulse Resp BP Pulse Ox O2 Del Method O2 Flow Rate 97.8 F 73 17 136/69 H 97 Room Air 2 03/22/25 15:49 03/22/25 15:49 03/22/25 15:49 03/22/25 15:49 03/22/25 15:49 03/22/25 15:49 03/21/25 20:45 Narrative Exam General: Temporal wasting. Awake and in no acute distress. Conversational and non-toxic appearing. Neurologic: GCS 15. Alert and oriented x3, no gross neurological deficit, and patient able to move all 4 extremities. HEENT: Normocephalic, atraumatic, mucous membranes moist. Pupils reactive to light. Heart: Regular rate and rhythm, normal S1 and S2, no murmurs. Lungs: Clear to auscultation bilaterally with no wheezing or crackles. Abdomen: Soft, nondistended, nontender, positive bowel sounds. No guarding or rebound tenderness. Extremities: Left foot bandaged and wrapped, decreased sensation in the left lower extremity, no edema. 2+ radial and dorsalis pedis pulses bilaterally. Skin: Warm. Dry. No rash or ecchymoses. Objective Labs 03/23/25 04:20 03/23/25 04:20 Labs: Laboratory Results - last 24 hr 03/22/25 03/22/25 05:20 09:00 WBC 7.3 RBC 4.10 L Hgb 11.9 L Hct 35.9 L MCV 88 MCH 29.0 MCHC 33.1 RDW Std Deviation 39.8 Plt Count 294 Neut % (Auto) 63 Lymph % (Auto) 21 [place] % (Auto) 12 Eos % (Auto) 2 Baso % (Auto) 1 Neut # (Auto) 4.6 Lymph # (Auto) 1.5 [place] # (Auto) 0.9 H Eos # (Auto) 0.2 Baso # (Auto) 0.1 Immature Gran # (Auto) 0.02 H Absolute Nucleated RBC 0.00 Immature Gran % 0 Nucleated RBC % 0 Sodium 140 Potassium 3.9 Chloride 103 Carbon Dioxide 25.7 Anion Gap 11 BUN 21 Creatinine 1.0 Estim Creat Clear Calc 88.4 eGFR > 60 BUN/Creatinine Ratio 21 H Glucose 158 H Calculated Osmolality 285 Calcium 9.3 Corrected Calcium 9.3 Phosphorus 3.3 Magnesium 2.2 Total Bilirubin < 0.2 L AST 23 ALT 11 Alkaline Phosphatase 95 Total Protein 6.5 Albumin 4.0 Globulin 2.5 Albumin/Globulin Ratio 1.6 Vancomycin Trough 10.6 H ABG Interpretation ABG results: 03/20/25 13:51 VBG pH 7.40 VBG pCO2 42 VBG pO2 19 VBG Base Excess 1 Quality Measures Quality Measures VTE prophylaxis Assessment & Plan Assessment Current Active Medications: Generic Name Dose Route Start Last Admin Trade Name Freq PRN Reason Stop Dose Admin Acetaminophen 650 mg 03/20/25 16:46 03/21/25 18:26 Acetaminophen 325 Mg Tablet PO 04/19/25 16:45 650 mg Q6H PRN Administration PAIN SCALE 1-3 (mild Hydrocodone Bitart/Acetaminophen 1 tab 03/21/25 21:21 03/22/25 15:40 Hydrocodone/Apap 5/325 Tablet PO 03/25/25 17:47 1 tab Q8HR PRN Administration Pain 4-6 Ascorbic Acid 500 mg 03/21/25 21:16 03/22/25 08:48 Ascorbic Acid 250 Mg Tablet PO 04/20/25 21:15 500 mg BID ANISA Administration Dextrose 25 ml 03/20/25 16:51 Dextrose 50%-Water Inj 50 Ml Syringe IV 04/19/25 16:50 Q15MIN PRN BG 50-70 responsive npo pt Dextrose 50 ml 03/20/25 16:51 Dextrose 50%-Water Inj 50 Ml Syringe IV 04/19/25 16:50 Q15MIN PRN BG <50 OR BG <70 & pt unresponsive Docusate Sodium 100 mg 03/21/25 21:16 03/22/25 08:48 Docusate Sod 100 Mg Capsule PO 04/20/25 21:15 Not Given BID [facility] Protocol Flecainide Acetate 100 mg 03/20/25 21:00 03/22/25 08:46 Flecainide Acet 50 Mg Tablet PO 04/19/25 20:59 100 mg BID ANISA Administration Gabapentin 200 mg/ Gabapentin 800 mg 03/20/25 22:00 03/22/25 14:06 600 mg PO 04/19/25 21:59 800 mg TID ANISA Administration Glucagon 1 mg 03/20/25 16:51 Glucagon Inj 1 Mg Vial IM Q15MIN PRN BG <70, and no IV access Hydromorphone HCl 1 mg 03/21/25 21:16 Hydromorphone Inj 2 Mg/Ml Vial IVP 03/26/25 21:15 Q3H PRN PAIN SCALE 7-10 (Severe Piperacillin Sod/Tazobactam 100 mls @ 200 mls/hr 03/20/25 22:00 03/22/25 17:09 Sod 4.5 gm/ Sodium Chloride IV 03/27/25 21:59 200 mls/hr Q6HR ANISA Administration Protocol Vancomycin/Sodium Chloride 750 mg in 150 mls @ 120 mls/hr 03/21/25 10:00 03/22/25 10:58 Vancomycin/Ns 750 Mg Ivpb IV 03/28/25 09:59 120 mls/hr Q12H ANISA Administration Protocol Insulin Human Lispro 0 unit 03/22/25 07:30 03/22/25 17:07 Insulin Lispro (Admelog) 1 Unit/0.01 Ml Unit SC 04/21/25 07:29 3 unit ACHS ANISA Administration Protocol Nicotine 14 mg 03/22/25 09:00 03/22/25 08:47 Nicotine Patch 14 Mg/24 Hr Patch.Td24 TOP 04/21/25 08:59 14 mg QDAY ANISA Administration Ondansetron HCl 4 mg 03/20/25 16:46 Ondansetron Inj 2 Mg/Ml Inj 2 Ml IVP 04/19/25 16:45 Q6H PRN NAUSEA OR VOMITING Protocol Pantoprazole Sodium 40 mg 03/21/25 09:00 03/22/25 08:48 Pantoprazole 40 Mg Tablet PO 04/20/25 08:59 40 mg QDAY ANISA Administration Pharmacy Consult 1 each 03/21/25 09:00 03/22/25 10:04 Vancomycin Pharmacy To Dose 1 Each Each IV 04/20/25 08:59 Not Given QDAY ANISA Quetiapine Fumarate 25 mg 03/20/25 21:00 03/21/25 21:44 Quetiapine Fumarate 25 Mg Tablet PO 04/19/25 20:59 25 mg HS ANISA Administration Sertraline HCl 50 mg 03/22/25 21:00 Sertraline Hcl 25 Mg Tablet PO 04/21/25 20:59 HS ANISA Zinc Sulfate 220 mg 03/22/25 09:00 03/22/25 08:48 Zinc Sulfate 220 Mg Capsule PO 04/21/25 08:59 220 mg QDAY ANISA Administration Plan Summary: Mr Glover is a 59 year old gentleman with hx of poorly controlled t2dm (a1c 10.4), Afib on flecanide, HLD, poly substance use disorder, gastric bypass in 2016, poor nutritional intake, anxiety and depression who presented with Left big toe wound who was found to have osteomyelitis and gangrene findings on xray of the foot, admitted for managment of osteomyelitis and gangrene with plan for amputation of the L great toe with Dr. Vargas. Osteomyelitis and gangrene of L toe Lactic acidosis (Resolved) Leukocytosis (Resolved) CRP and ESR elevated wbc 12.9 Lactic Acid elevated likely 2/2 poor perfusion to the L toe, has resolved pt states that due to his poorly controlled dm he was unable to feel or notice when he stubbed his toe. Plan - Vancomycin, pharmacy to dose (03/20- - Zosyn 4.5 q6hr (03/20- - Acetaminophen 650 for mild pain q6 prn for pain 1-3 - [place] 5-325 q8hr po for pain 4-6 - Dilaudid 1 mg IV every 3 hours as needed for pain 7-10 - Wound care consulted Depression Anxiety [place] 5150 [place] in july of 2023, he states that he has been very depressed for the past year due to a divorce. he has anhedonia and minimal motivation to do much Patient mentions that he has taken sertraline for the past 6 months Plan - cont home quetiapine 25 qhs - Started 50 mg nightly sertraline Afib pt states that he has run out of his medications for the past week and has been unable to take his medications as prescribed Plan - continue home flecainide 100 mg PO BID T2DM- poorly controlled A1c 10.4 Home meds: (empagliflozin/metformin) 12.09/999 mg BID PO Plan - Bedside glucose checks ACHS until fasted after midnight for surgery then q6hr - Step 1 ISS - hold home meds Protein Calorie Malnutrition Hx of Gastric bypass surgery in 2016 Starvation ketosis pt states he has poor appetite and uses thc smoking to stimulate appetite at times. Endorses feeling orthostatic when getting up to stand to urinate elevated B-hydroxybutrate, Plan - consult dietitian Tobacco Use disorder Methamphetamine Use disorder THC use pt endorses chewing tobacco and last meth use a few weeks ago. he regularly uses THC to stimulate his appetite pt denies any iv drug use Plan nicotine patch 14 qd provide tobacco chewing cessation resources upon discharge if pt amenable Utox pending Peripheral Neuropathy continue home gabapentin 800 mg TID GERD home pantoprazole 20 mg PO qd Plan: - pantoprazole 40 qd HLD - simvistatin 40 PO hs Hyponatremia (Resolved) suspect chronic rather than acute given pt reported poor po intake MARCO - (Resolved) pt endorses poor po intake, and some orthostasis, Likely that it is prerenal Dispo: Med Surg, continuing IV antibiotics, restarted home sertraline 50 mg nightly. Diet: Carb consistent Bowel Reg: senna docusate prn VTE ppx: HOLD heparin 5000 sc in setting of surgery GI ppx: protonix 40 qd Code status: FULL Patient was seen and discussed with my attending physician Dr. Vahe KENNEDY. Osvaldo Kendrick DO PGY-1. Attending Provider Attestation/Addendum I, Viola Cotter DO, attest that I was physically present for the cano portions of the service and evaluated the patient with the resident and I reviewed and discussed the case with the resident and agree with the resident's findings and plans of care as documented above Patient seen and eval this a.m. He states that he is feeling depressed since he has to stay here in the hospital for another 2 days as per surgeons recommendations. Dressing will be changed on the third day postop. Dressing currently appears to be clean dry and intact. He underwent transmetatarsal amputation of the left great toe yesterday. Patient denies any pain at this very time. He is to continue with IV antibiotics at this time. Anticipate discharge in the next 48 hours.
[2025-03-22] MEDS: SERTRALINE HCL 25 MG TABLET 50 MG PO (20:37)
[2025-03-22] MEDS: DOCUSATE SOD 100 MG CAPSULE PO (20:37)
[2025-03-23] VITALS (10 sets, daily range): BP systolic 94–129; BP diastolic 60–71; PULSE 59–70; RESP 17–95; TEMP 36.2–36.9; O2SAT 95–98
[2025-03-23 05:11] LABS: Basophils # (Auto) 0.1 Thou/mm3 (0.0-0.2); Basophils % (Auto) 1 % (0-2.5); Eosinophils # (Auto) 0.3 Thou/mm3 (0.0-0.5); Eosinophils % (Auto) 4 % (0-10); Hematocrit 35.1 % (41.0-53.0); Hemoglobin 11.9 g/dL (13.5-16.0); Immature Granulocytes Auto 0.01 Thou/mm3 (0.00-0.00); Lymphocytes # (Auto) 2.0 Thou/mm3 (1.0-4.8); Lymphocytes % (Auto) 31 % (10-50); Mean Corpuscular HGB Conc 33.9 g/dl (31.0-37.0); Mean Corpuscular Hemoglobin 30.1 pg (25.0-35.0); Mean Corpuscular Volume 89 fL (80-100); Monocytes # (Auto) 0.7 Thou/mm3 (0.0-0.8); Monocytes % (Auto) 10 % (0-12); Neutrophils # (Auto) 3.5 Thou/mm3 (1.8-7.7); Neutrophils % (Auto) 54 % (37-80); Nucleated Red Blood Cell # 0.00 Thou/mm3 (0.00-0.00); Nucleated Red Blood Cell % 0 /100 WBC (0); Platelet Count 309 Thou/mm3 (140-440); RDW Standard Deviation 40.4 fL (35.1-43.9); Red Blood Count 3.96 Miln/mm3 (4.50-5.90); White Blood Count 6.5 Thou/mm3 (3.8-10.6)
[2025-03-23] MEDS: PIPER/TAZO INJ 4.5 GM in SODIUM CHLORIDE 0.9% (POP) 100 ML IV ×3 (05:24→17:09)
[2025-03-23] MEDS: GABAPENTIN 200 MG, GABAPENTIN 600 MG 800 MG PO ×3 (05:24→21:48)
[2025-03-23 06:01] LABS: Alanine Aminotransferase 8 U/L (10-49); Albumin, Serum 3.9 gm/dL (3.5-5.0); Albumin/Globulin Ratio 1.7 (1.2-2.2); Alkaline Phosphatase 83 U/L (46-116); Anion Gap 7 (7-16); Aspartate Amino Transferase 15 U/L (0-34); BUN/Creatinine Ratio 19 Ratio (12-20); Bilirubin,Total 0.2 mg/dL (0.3-1.2); Blood Urea Nitrogen 19 mg/dL (9-23); Calcium 9.2 mg/dL (8.3-10.6); Calcium (Corrected) 9.3 mg/dL (8.5-10.1); Carbon Dioxide 30.3 mMol/L (20.0-31.0); Chloride 103 mMol/L (98-107); Creatinine (Component) 1.0 mg/dL (0.6-1.3); Estimated Creatinine Clearance 88.4 mL/min (>60); Globulin 2.3 gm/dL (2.3-3.5); Glucose 213 mg/dL (74-106); Magnesium 2.3 mg/dL (1.6-2.6); Osmolality,Calculated 287 (275-295); Phosphorous 3.1 mg/dL (2.4-5.1); Potassium 4.1 mMol/L (3.4-5.1); Sodium 140 mMol/L (136-145); Total Protein 6.2 gm/dL (5.7-8.2); eGFR > 60 See Note
[2025-03-23] MEDS: INSULIN LISPRO (AdmeLOG) 1 UNIT/0.01 ML UNIT SC ×4 (07:28→22:06)
[2025-03-23] MEDS: NICOTINE PATCH 14 MG/24 HR PATCH.TD24 TOP (09:07)
[2025-03-23] MEDS: VANCOMYCIN/NS 750 MG IVPB 750 MG/150 ML BAG 120 MG IV ×2 (09:08→23:30)
[2025-03-23] MEDS: FLECAINIDE ACET 50 MG TABLET 100 MG PO ×2 (09:08→21:51)
[2025-03-23] MEDS: ZINC SULFATE 220 MG CAPSULE PO (09:08)
[2025-03-23] MEDS: PANTOPRAZOLE 40 MG TABLET PO (09:09)
[2025-03-23] MEDS: ASCORBIC ACID 250 MG TABLET 500 MG PO ×2 (09:09→21:50)
--- NOTE | 2025-03-23 10:46 | ESPR_ITS ---
Documentation for date of: 03/23/25 Subjective Subjective Interval history: Patient seen and examined at bedside. Patient was adjusting himself in bed over night and impacted his left foot on the bed, causing it bleed for a short amount of time. Bleeding was stopped over night. Continuing IV antibiotics. Started 10 units of degludec. Cultures negative after 48 hours. Exam Vital Signs Temp Pulse Resp BP Pulse Ox O2 Del Method O2 Flow Rate 97.9 F 67 18 115/63 96 Room Air 2 03/23/25 08:00 03/23/25 09:08 03/23/25 08:00 03/23/25 09:08 03/23/25 08:00 03/23/25 08:00 03/21/25 20:45 Narrative Exam General: Temporal wasting. Awake and in no acute distress. Conversational and non-toxic appearing. Neurologic: GCS 15. Alert and oriented x3, no gross neurological deficit, and patient able to move all 4 extremities. HEENT: Normocephalic, atraumatic, mucous membranes moist. Pupils reactive to light. Heart: Regular rate and rhythm, normal S1 and S2, no murmurs. Lungs: Clear to auscultation bilaterally with no wheezing or crackles. Abdomen: Soft, nondistended, nontender, positive bowel sounds. No guarding or rebound tenderness. Extremities: Left foot bandaged and wrapped, decreased sensation in the left lower extremity, right foot missing 3 digits, no edema. 2+ radial and dorsalis pedis pulses bilaterally. Skin: Warm. Dry. No rash or ecchymoses. Objective Labs 03/23/25 04:20 03/23/25 04:20 Labs: Laboratory Results - last 24 hr 03/23/25 04:20 WBC 6.5 RBC 3.96 L Hgb 11.9 L Hct 35.1 L MCV 89 MCH 30.1 MCHC 33.9 RDW Std Deviation 40.4 Plt Count 309 Neut % (Auto) 54 Lymph % (Auto) 31 [place] % (Auto) 10 Eos % (Auto) 4 Baso % (Auto) 1 Neut # (Auto) 3.5 Lymph # (Auto) 2.0 [place] # (Auto) 0.7 Eos # (Auto) 0.3 Baso # (Auto) 0.1 Immature Gran # (Auto) 0.01 H Absolute Nucleated RBC 0.00 Immature Gran % 0 Nucleated RBC % 0 Sodium 140 Potassium 4.1 Chloride 103 Carbon Dioxide 30.3 Anion Gap 7 BUN 19 Creatinine 1.0 Estim Creat Clear Calc 88.4 eGFR > 60 BUN/Creatinine Ratio 19 Glucose 213 H D Calculated Osmolality 287 Calcium 9.2 Corrected Calcium 9.3 Phosphorus 3.1 Magnesium 2.3 Total Bilirubin 0.2 L AST 15 ALT 8 L Alkaline Phosphatase 83 Total Protein 6.2 Albumin 3.9 Globulin 2.3 Albumin/Globulin Ratio 1.7 ABG Interpretation ABG results: 03/20/25 13:51 VBG pH 7.40 VBG pCO2 42 VBG pO2 19 VBG Base Excess 1 Quality Measures Quality Measures VTE prophylaxis Assessment & Plan Assessment Current Active Medications: Generic Name Dose Route Start Last Admin Trade Name Freq PRN Reason Stop Dose Admin Acetaminophen 650 mg 03/20/25 16:46 03/21/25 18:26 Acetaminophen 325 Mg Tablet PO 04/19/25 16:45 650 mg Q6H PRN Administration PAIN SCALE 1-3 (mild Hydrocodone Bitart/Acetaminophen 1 tab 03/21/25 21:21 03/22/25 15:40 Hydrocodone/Apap 5/325 Tablet PO 03/25/25 17:47 1 tab Q8HR PRN Administration Pain 4-6 Ascorbic Acid 500 mg 03/21/25 21:16 03/23/25 09:09 Ascorbic Acid 250 Mg Tablet PO 04/20/25 21:15 500 mg BID ANISA Administration Dextrose 25 ml 03/20/25 16:51 Dextrose 50%-Water Inj 50 Ml Syringe IV 04/19/25 16:50 Q15MIN PRN BG 50-70 responsive npo pt Dextrose 50 ml 03/20/25 16:51 Dextrose 50%-Water Inj 50 Ml Syringe IV 04/19/25 16:50 Q15MIN PRN BG <50 OR BG <70 & pt unresponsive Docusate Sodium 100 mg 03/21/25 21:16 03/23/25 09:09 Docusate Sod 100 Mg Capsule PO 04/20/25 21:15 Not Given BID ANISA Protocol Flecainide Acetate 100 mg 03/20/25 21:00 03/23/25 09:08 Flecainide Acet 50 Mg Tablet PO 04/19/25 20:59 100 mg BID ANISA Administration Gabapentin 200 mg/ Gabapentin 800 mg 03/20/25 22:00 03/23/25 05:24 600 mg PO 04/19/25 21:59 800 mg TID ANISA Administration Glucagon 1 mg 03/20/25 16:51 Glucagon Inj 1 Mg Vial IM Q15MIN PRN BG <70, and no IV access Hydromorphone HCl 1 mg 03/21/25 21:16 Hydromorphone Inj 2 Mg/Ml Vial IVP 03/26/25 21:15 Q3H PRN PAIN SCALE 7-10 (Severe Piperacillin Sod/Tazobactam 100 mls @ 200 mls/hr 03/20/25 22:00 03/23/25 05:24 Sod 4.5 gm/ Sodium Chloride IV 03/27/25 21:59 200 mls/hr Q6HR ANISA Administration Protocol Vancomycin/Sodium Chloride 750 mg in 150 mls @ 120 mls/hr 03/21/25 10:00 03/23/25 09:08 Vancomycin/Ns 750 Mg Ivpb IV 03/28/25 09:59 120 mls/hr Q12H ANISA Administration Protocol Insulin Human Lispro 0 unit 03/22/25 07:30 03/23/25 07:28 Insulin Lispro (Admelog) 1 Unit/0.01 Ml Unit SC 04/21/25 07:29 4 unit ACHS ANISA Administration Protocol Nicotine 14 mg 03/22/25 09:00 03/23/25 09:07 Nicotine Patch 14 Mg/24 Hr Patch.Td24 TOP 04/21/25 08:59 14 mg QDAY ANISA Administration Ondansetron HCl 4 mg 03/20/25 16:46 Ondansetron Inj 2 Mg/Ml Inj 2 Ml IVP 04/19/25 16:45 Q6H PRN NAUSEA OR VOMITING Protocol Pantoprazole Sodium 40 mg 03/21/25 09:00 03/23/25 09:09 Pantoprazole 40 Mg Tablet PO 04/20/25 08:59 40 mg QDAY ANISA Administration Pharmacy Consult 1 each 03/21/25 09:00 03/23/25 09:09 Vancomycin Pharmacy To Dose 1 Each Each IV 04/20/25 08:59 Not Given QDAY ANISA Quetiapine Fumarate 25 mg 03/20/25 21:00 03/22/25 20:37 Quetiapine Fumarate 25 Mg Tablet PO 04/19/25 20:59 25 mg HS ANISA Administration Sertraline HCl 50 mg 03/22/25 21:00 03/22/25 20:37 Sertraline Hcl 25 Mg Tablet PO 04/21/25 20:59 50 mg HS ANISA Administration Zinc Sulfate 220 mg 03/22/25 09:00 03/23/25 09:08 Zinc Sulfate 220 Mg Capsule PO 04/21/25 08:59 220 mg QDAY ANISA Administration Plan Summary: Mr Glover is a 59 year old gentleman with hx of poorly controlled t2dm (a1c 10.4), Afib on flecanide, HLD, poly substance use disorder, gastric bypass in 2016, poor nutritional intake, anxiety and depression who presented with Left big toe wound who was found to have osteomyelitis and gangrene findings on xray of the foot, admitted for managment of osteomyelitis and gangrene with plan for amputation of the L great toe with Dr. Vargas. Osteomyelitis and gangrene of L toe Lactic acidosis (Resolved) Leukocytosis (Resolved) CRP and ESR elevated wbc 12.9 Lactic Acid elevated likely 2/2 poor perfusion to the L toe, has resolved pt states that due to his poorly controlled dm he was unable to feel or notice when he stubbed his toe. Plan - Vancomycin, pharmacy to dose (03/20- - Zosyn 4.5 q6hr (03/20- - Acetaminophen 650 for mild pain q6 prn for pain 1-3 - Godwin 5-325 q8hr po for pain 4-6 - Dilaudid 1 mg IV every 3 hours as needed for pain 7-10 - Wound care consulted Depression Anxiety [place] 5150 hold in july of 2023, he states that he has been very depressed for the past year due to a divorce. he has anhedonia and minimal motivation to do much Patient mentions that he has taken sertraline for the past 6 months Plan - cont home quetiapine 25 qhs - Started 50 mg nightly sertraline Afib pt states that he has run out of his medications for the past week and has been unable to take his medications as prescribed Plan - continue home flecainide 100 mg PO BID T2DM- poorly controlled A1c 10.4 Home meds: (empagliflozin/metformin) 12.09/999 mg BID PO Blood sugar was 213, 350 Plan - Started degludec 10 units - Step 1 ISS - hold home meds Protein Calorie Malnutrition Hx of Gastric bypass surgery in 2016 Starvation ketosis pt states he has poor appetite and uses thc smoking to stimulate appetite at times. Endorses feeling orthostatic when getting up to stand to urinate elevated B-hydroxybutrate, Plan - consult dietitian Tobacco Use disorder Methamphetamine Use disorder THC use pt endorses chewing tobacco and last meth use a few weeks ago. he regularly uses THC to stimulate his appetite pt denies any iv drug use Plan nicotine patch 14 qd provide tobacco chewing cessation resources upon discharge if pt amenable Peripheral Neuropathy continue home gabapentin 800 mg TID GERD home pantoprazole 20 mg PO qd Plan: - pantoprazole 40 qd HLD - simvistatin 40 PO hs Hyponatremia (Resolved) suspect chronic rather than acute given pt reported poor po intake MARCO - (Resolved) pt endorses poor po intake, and some orthostasis, Likely that it is prerenal Dispo: Med Surg, continuing IV antibiotics, started degludec 10 units daily. Diet: Carb consistent Bowel Reg: docusate prn VTE ppx: HOLD heparin 5000 sc in setting of surgery GI ppx: protonix 40 qd Code status: FULL Patient was seen and discussed with my attending physician Dr. Vahe KENNEDY. Osvaldo Kendrick DO PGY-1. Attending Provider Attestation/Addendum Elkin, Viola Cotter DO, attest that I was physically present for the cano portions of the service and evaluated the patient with the resident and I reviewed and discussed the case with the resident and agree with the resident's findings and plans of care as documented above Patient seen and evaluated this AM. He states he is doing well and has no acute complaints at this time. Patient states that he had accidentally hit his foot on the edge of the bed overnight while readjusting, resulting in some bleeding. He is otherwise not complaining of pain. Will continue with current management and IV abx. Anticipate DC wtihin next 24h after re-evaluation POD 3 by surgeon and dressing is changed.
[2025-03-23] MEDS: INSULIN DEGLUDEC 5 UNIT/0.05 ML (PER 5 UNITS) 10 UNIT SC (11:35)
[2025-03-23] MEDS: HYDROcodone/APAP 5/325 TABLET 1 TAB PO ×2 (13:10→22:05)
[2025-03-23 21:38] LABS: Vancomycin,Trough 13.5 mcg/mL (5.0-10.0)
[2025-03-23] MEDS: SERTRALINE HCL 25 MG TABLET 50 MG PO (21:52)
[2025-03-24] VITALS (8 sets, daily range): BP systolic 84–125; BP diastolic 45–70; PULSE 54–70; RESP 16–95; TEMP 36–36.6; O2SAT 94–97
[2025-03-24] MEDS: PIPER/TAZO INJ 4.5 GM in SODIUM CHLORIDE 0.9% (POP) 100 ML IV ×3 (01:15→11:19)
[2025-03-24 05:37] LABS: Basophils # (Auto) 0.1 Thou/mm3 (0.0-0.2); Basophils % (Auto) 1 % (0-2.5); Eosinophils # (Auto) 0.4 Thou/mm3 (0.0-0.5); Eosinophils % (Auto) 4 % (0-10); Hematocrit 32.6 % (41.0-53.0); Hemoglobin 10.9 g/dL (13.5-16.0); Immature Granulocytes Auto 0.16 Thou/mm3 (0.00-0.00); Lymphocytes # (Auto) 2.4 Thou/mm3 (1.0-4.8); Lymphocytes % (Auto) 26 % (10-50); Mean Corpuscular HGB Conc 33.4 g/dl (31.0-37.0); Mean Corpuscular Hemoglobin 29.7 pg (25.0-35.0); Mean Corpuscular Volume 89 fL (80-100); Monocytes # (Auto) 0.7 Thou/mm3 (0.0-0.8); Monocytes % (Auto) 7 % (0-12); Neutrophils # (Auto) 5.5 Thou/mm3 (1.8-7.7); Neutrophils % (Auto) 61 % (37-80); Nucleated Red Blood Cell # 0.00 Thou/mm3 (0.00-0.00); Nucleated Red Blood Cell % 0 /100 WBC (0); Platelet Count 261 Thou/mm3 (140-440); RDW Standard Deviation 40.0 fL (35.1-43.9); Red Blood Count 3.67 Miln/mm3 (4.50-5.90); White Blood Count 9.1 Thou/mm3 (3.8-10.6)
[2025-03-24 05:57] LABS: Alanine Aminotransferase 10 U/L (10-49); Albumin, Serum 3.7 gm/dL (3.5-5.0); Albumin/Globulin Ratio 1.5 (1.2-2.2); Alkaline Phosphatase 75 U/L (46-116); Anion Gap 6 (7-16); Aspartate Amino Transferase 23 U/L (0-34); BUN/Creatinine Ratio 14 Ratio (12-20); Bilirubin,Total < 0.2 mg/dL (0.3-1.2); Blood Urea Nitrogen 14 mg/dL (9-23); Calcium 9.1 mg/dL (8.3-10.6); Calcium (Corrected) 9.3 mg/dL (8.5-10.1); Carbon Dioxide 27.5 mMol/L (20.0-31.0); Chloride 103 mMol/L (98-107); Creatinine (Component) 1.0 mg/dL (0.6-1.3); Estimated Creatinine Clearance 88.4 mL/min (>60); Globulin 2.4 gm/dL (2.3-3.5); Glucose 129 mg/dL (74-106); Magnesium 2.2 mg/dL (1.6-2.6); Osmolality,Calculated 274 (275-295); Phosphorous 3.3 mg/dL (2.4-5.1); Potassium 4.6 mMol/L (3.4-5.1); Sodium 136 mMol/L (136-145); Total Protein 6.1 gm/dL (5.7-8.2); eGFR > 60 See Note
[2025-03-24] MEDS: GABAPENTIN 200 MG, GABAPENTIN 600 MG 800 MG PO (06:45)
[2025-03-24] MEDS: INSULIN LISPRO (AdmeLOG) 1 UNIT/0.01 ML UNIT SC ×2 (08:11→11:16)
[2025-03-24] MEDS: NICOTINE PATCH 14 MG/24 HR PATCH.TD24 TOP (08:12)
[2025-03-24] MEDS: INSULIN DEGLUDEC 5 UNIT/0.05 ML (PER 5 UNITS) 10 UNIT SC (08:12)
[2025-03-24] MEDS: PANTOPRAZOLE 40 MG TABLET PO (08:13)
[2025-03-24] MEDS: ASCORBIC ACID 250 MG TABLET 500 MG PO (08:13)
[2025-03-24] MEDS: FLECAINIDE ACET 50 MG TABLET 100 MG PO (08:13)
[2025-03-24] MEDS: ZINC SULFATE 220 MG CAPSULE PO (08:13)
[2025-03-24] MEDS: VANCOMYCIN/NS 750 MG IVPB 750 MG/150 ML BAG 120 MG IV (10:14)
[2025-03-24] MEDS: HYDROcodone/APAP 5/325 TABLET 1 TAB PO (11:22)
--- NOTE | 2025-03-24 11:38 | ESDS_ITS ---
<Statement entered by Viola Cotter DO - 03/25/25 11:10> I, Viola Cotter DO, attest that I was physically present for the cano portions of the service and evaluated the patient with the resident and I reviewed and discussed the case with the resident and agree with the resident's findings and plans of care as documented above Planned Discharge Date 03/24/25 DS: Providers Provider Date of admission: 03/20/25 16:56 Primary care physician: Antwan Hood MD Admitting Provider: Viola Cotter DO Attending Provider on Admission: Viola Cotter DO Consults: 03/20/25 15:24 Consult to General Surgery Stat Comment: Left great toe gangrene Consulting Provider: Yeimi Vargas 03/20/25 16:55 Referral Registered Dietitian Routine Comment: 03/20/25 18:10 Referral Wound Care Routine Comment: 03/20/25 21:07 Health Equity Referral - Utilities Routine Comment: Positive screening for utility assistance needs. 03/20/25 21:08 Referral [place] Routine Comment: Attending Provider on DC: Viola Cotter DO Discharging Provider: Osvaldo Kendrick DO DS: Diagnosis Discharge Diagnosis (1) Diabetes mellitus: Status: Acute (2) Toe gangrene: Status: Acute Problem List Completed Was Problem List Reviewed/Reconciled?: Yes Hospital Course Hospital Course Hospital course: Hospital Course: Mr Glover is a 59 year old gentleman with hx of poorly controlled t2dm (a1c 10.4), Afib on flecanide, HLD, poly substance use disorder, gastric bypass in 2016, poor nutritional intake, anxiety and depression who presented to the emergency department on 03/20 after 2 days of moderate pain of the left great toe. Patient stated that he did not experience severe pain of his left toe and does not recall stubbing his toe or hitting his leg. He noted that the toe was swollen and decided to present to the emergency department. He endorsed having fever, chills, and night sweats at home. Surgery was consulted and the patient underwent transmetatarsal amputation of left first toe on 03/21/2025. He was treated with 3 days of IV vancomycin and Zosyn and his pain was controlled with Dilaudid. Patient was treated with Seroquel and sertraline for his depression and anxiety. The patient was kept on flecainide for his A-fib. His diabetes was managed with insulin sliding scale and degludec. The patient was treated with gabapentin for his peripheral neuropathy and his statin was resumed for his hyperlipidemia. On postop day 3 the surgical team inspected the patient's surgical site and it was found to be clean and healing. The patient's vitals are stable upon discharge. He will follow-up with Dr. Vargas in 2 weeks. Problem List: Osteomyelitis and gangrene of L toe Lactic acidosis (Resolved) Leukocytosis (Resolved) Depression Anxiety Afib T2DM- poorly controlled Protein Calorie Malnutrition Hx of Gastric bypass surgery in 2016 Starvation ketosis Tobacco Use disorder Methamphetamine Use disorder THC use Peripheral Neuropathy GERD HLD Hyponatremia (Resolved) MARCO - (Resolved) Discharge Instructions: * Start taking your vitamin C * Start taking your ferrous sulfate 325 every other day * Start taking your flecainide 50 mg tablet twice a day * Start taking vitamin B12 [id number] * Start taking gabapentin 400 mg 3 times a day * Take your hydrocodone every 8 hours as needed for pain * Use your insulin degludec 10 units daily * Start taking quetiapine 25 mg nightly * Start taking sertraline 25 mg nightly * Start taking simvastatin 40 mg daily * Start taking Synjardy 1 g tablet daily * Start taking your zinc supplement daily * Continue taking all other home medications as prescribed * No weightbearing on left lower extremity for 6 weeks. * Follow-up with Dr Vargas in 2 weeks, call [phone] for an appointment. * If you do not have a PCP, then you can follow-up at the [facility] * Return to the emergency room if symptoms worsen The patient was seen and discussed with my attending physician Dr. Vahe KENNEDY and my sennior resident Dr. August WILEY PGY-2. Osvaldo Kendrick DO PGY-1 Time Spent with Patient Time attestation: Total time spent providing and/or coordinating discharge services: More than 50% Time spent: Greater than 30 minutes Exam Vital Signs Temp Pulse Resp BP Pulse Ox O2 Del Method O2 Flow Rate 97.9 F 70 20 125/70 96 Room Air 2 03/24/25 08:00 03/24/25 08:13 03/24/25 08:00 03/24/25 08:13 03/24/25 08:00 03/24/25 08:00 03/21/25 20:45 Narrative Exam General: Temporal wasting. Awake and in no acute distress. Conversational and non-toxic appearing. Neurologic: GCS 15. Alert and oriented x3, no gross neurological deficit, and patient able to move all 4 extremities. HEENT: Normocephalic, atraumatic, mucous membranes moist. Pupils reactive to light. Heart: Regular rate and rhythm, normal S1 and S2, no murmurs. Lungs: Clear to auscultation bilaterally with no wheezing or crackles. Abdomen: Soft, nondistended, nontender, positive bowel sounds. No guarding or rebound tenderness. Extremities: Left foot bandaged and wrapped, decreased sensation in the left lower extremity, right foot missing 3 digits, no edema. 2+ radial and dorsalis pedis pulses bilaterally. Skin: Warm. Dry. No rash or ecchymoses. Discharge Plan Plan Patient Disposition: HOME (Self Care) Disposition Comment: FOLLOW UP WITH MD VARGAS IN OFFICE NEXT WEEK. CALL [phone] Patient condition on transfer: Stable Care Plan Goals: Instructions: * Start taking your vitamin C * Start taking your ferrous sulfate 325 every other day * Start taking your flecainide 50 mg tablet twice a day * Start taking vitamin B12 [id number] * Start taking gabapentin 400 mg 3 times a day * Take your hydrocodone every 8 hours as needed for pain * Use your insulin degludec 10 units daily * Start taking quetiapine 25 mg nightly * Start taking sertraline 25 mg nightly * Start taking simvastatin 40 mg daily * Start taking Synjardy 1 g tablet daily * Start taking your zinc supplement daily * Continue taking all other home medications as prescribed * Follow-up with PCP within 1-2 weeks of discharge * If you do not have a PCP, then you can follow-up at the [facility] * Return to the emergency room if symptoms worsen Prescriptions/Referrals Prescriptions/Med Rec: New quetiapine 25 mg Tablet 25 mg PO HS 30 Days Qty: 30 0RF ascorbic acid (vitamin C) [Vitamin C] 250 mg Tablet 500 mg PO BID 30 Days Qty: 120 0RF sertraline 25 mg Tablet 50 mg PO HS 30 Days Qty: 60 0RF zinc sulfate 50 mg zinc (220 mg) Capsule 220 mg PO QDAY 30 Days Qty: 132 0RF hydrocodone-acetaminophen 5-325 mg Tablet 1 tab PO Q8HR MDD 3 PRN (Reason: Pain 4-6) 3 Days Qty: 9 0RF gabapentin 400 mg Capsule 800 mg PO TID 30 Days Qty: 180 0RF flecainide 50 mg Tablet 100 mg PO BID 30 Days Qty: 120 0RF ferrous sulfate 325 mg (65 mg iron) tablet 325 mg PO Q OTHER DAY 30 Days Qty: 15 0RF insulin degludec [Tresiba FlexTouch U-100] 100 unit/mL (3 mL) insulin pen 10 unit subcut QDAY Qty: 15 0RF Synjardy 12.5-1,000 mg tablet 1 tab PO BID 30 Days Qty: 60 0RF simvastatin 40 mg tablet 40 mg PO QDAY 30 Days Qty: 30 0RF (DME) pen needle, diabetic 31 gauge x 15/64 needle See Rx Instructions .Route Qty: 100 0RF Rx Instructions: As directed (DME) FreeStyle Vimal 3 Plus Sensor Device See Rx Instructions .Route Qty: 1 0RF Rx Instructions: As directed (DME) FreeStyle Vimal 3 [place] Misc See Rx Instructions .Route Qty: 1 0RF Rx Instructions: As directed sulfamethoxazole-trimethoprim [Bactrim DS] 800-160 mg tablet 1 tab PO BID Qty: 14 0RF Held duloxetine 60 mg Capsule,Delayed Release(Dr/Ec) 60 mg PO QDAY Hold Instructions: f/u with pcp Discontinued ondansetron 4 mg tablet,disintegrating 4 mg PO BID Qty: 14 0RF pantoprazole [Protonix] 20 mg tablet,delayed release (DR/EC) 20 mg PO QAM Qty: 30 0RF meloxicam 7.5 mg tablet 7.5 mg PO QDAY Qty: 10 0RF quetiapine 25 mg tablet 25 mg PO QDAY Patient Comments: TAKE 1 TABLET BY MOUTH ONCE DAILY gabapentin 800 mg Tablet 800 mg PO TID Synjardy 12.5-1,000 mg Tablet 1 tab PO BID Rx Instructions: with food simvastatin 40 mg Tablet 40 mg PO QPM ferrous sulfate [FeroSul] 325 mg (65 mg iron) Tablet 325 mg PO MWF Rx Instructions: Three Times Weekly For Restless Leg Syndrome carvedilol 3.125 mg Tablet 3.125 mg PO BID Rx Instructions: must administer with a meal/food flecainide 100 mg Tablet 100 mg PO BID Rx Instructions: flecainide acetate ropinirole 1 mg Tablet 1 mg PO TID sildenafil [Viagra] 100 mg Tablet 100 mg PO QDAY PRN (Reason: erection) Rx Instructions: administer 30 minutes to 4 hours before activity. Pt has not taken or has not needed for a while. clindamycin HCl 300 mg capsule 300 mg PO Q8H Qty: 24 0RF Referrals: Antwan Hood MD [Primary Care Provider, Family Practice] Patient/Caregiver Discharge Instructions Discharge Activity: activity as tolerated Education Materials: Healthy Meals for Diabetes, Diabetes: Keeping Feet He althy, Preventing Surgical Site Infections, Diabetes: Meal Planning Print Language: Samoan Activity Restrictions/Additional Instructions: May shower. No weightbearing on left lower extremity for 6 weeks. Cover the incision with dry dressings daily. Follow-up with Dr Vargas in 2 weeks, please call [phone] for an appointment. Stand Alone Forms: Ana Award Info., Patient Portal Info Letter Discharge Order Discharge Orders: Discharge (Routine); Ordered 03/24/25 Ordered By: Osvaldo Kendrick Quality Discharge Quality Measures none
--- NOTE | 2025-03-24 11:53 | PD.SURPROG ---
Documentation for date of: 03/24/25 Subjective Subjective Narrative: Patient is seen and examined. His pain is improving Exam Vital Signs Temp Pulse Resp BP Pulse Ox O2 Del Method O2 Flow Rate 97.9 F 70 20 125/70 96 Room Air 2 03/24/25 08:00 03/24/25 08:13 03/24/25 08:00 03/24/25 08:13 03/24/25 08:00 03/24/25 08:00 03/21/25 20:45 Constitutional Constitutional: no acute distress Routine Extremities Exam Comments: Left first toe amputation stump is healing, incision is clean, dry and intact with mild erythema Assessment & Plan Assessment Additional comments: Postop day #3 status post transmetatarsal amputation of left first toe Plan May discharge home on oral antibiotics for 1 week. Continue vitamin C and zinc. No weightbearing on left lower extremity for 6 weeks. Follow-up with Dr Vargas in 2 weeks, call [phone] for an appointment. PROCEDURES: Procedures Transmetatarsal amputation of left first toe
--- NOTE | 2025-03-24 12:31 | PC.CC ---
Attempted PA for YumDotse 3 Plus sensor + reader. PA not required at this time.
--- NOTE | 2025-03-24 13:53 | PC.NURSE ---
pt clear to dc after speaking to godfrey jay. Made godfrey aware she will come seem pt shortly.
--- NOTE | 2025-03-24 15:27 | PC.SS ---
Patient needs a manual wheelchair The patient and her family are requesting a wheel chair. Patients diagnosis creates mobility limitations that significantly impairs ability to participate in the patient?s activities of daily living either in their entirety or in a reasonable timeframe in the home and the patient?s mobility limitations cannot be sufficiently resolved with an appropriately fitted cane or walker. Also, the use of a manual wheelchair will sufficiently improve patients ability to participate in the activities of daily living in the home and the patient is willing to use the wheelchair that is provided in the home. The patient has some one in the home that is available, willing and able to provide assistance with the wheelchair.
== END 2025-03-24 15:11 | disposition home or self-care (01) | DRG 240 ==
LOC: SERX 15:40 → SERHOLD 17:25 → S3SX 22:34 → SERHOLD 03-21 06:02
PROVIDERS: Nurse Practitioner Family; Nurse Practitioner Primary Care; Surgery; Admitting Provider Internal Medicine; Emergency Provider Family Medicine; PCP Family Medicine; Visit Provider Internal Medicine
PROC: 0Y6N0Z9 Detachment at Left Foot, Partial 1st Ray, Open Approach (ICD-10-PCS; CPT 28820; principal; 2025-03-21 13:00)
DX: E11.52 Type 2 diabetes mellitus with diabetic peripheral angiopathy with gangrene (principal); E46 Unspecified protein-calorie malnutrition; E87.1 Hypo-osmolality and hyponatremia; L03.116 Cellulitis of left lower limb; M86.172 Other acute osteomyelitis, left ankle and foot; N17.9 Acute kidney failure, unspecified; E87.20 Acidosis, unspecified; E11.69 Type 2 diabetes mellitus with other specified complication; E11.65 Type 2 diabetes mellitus with hyperglycemia; F41.9 Anxiety disorder, unspecified; I48.91 Unspecified atrial fibrillation; E78.5 Hyperlipidemia, unspecified; F12.90 Cannabis use, unspecified, uncomplicated; F17.200 Nicotine dependence, unspecified, uncomplicated; F15.10 Other stimulant abuse, uncomplicated; G43.909 Migraine, unspecified, not intractable, without status migrainosus; I10 Essential (primary) hypertension; E11.40 Type 2 diabetes mellitus with diabetic neuropathy, unspecified; K21.9 Gastro-esophageal reflux disease without esophagitis; F32.A Depression, unspecified; Z63.5 Disruption of family by separation and divorce; Z98.84 Bariatric surgery status; Z89.429 Acquired absence of other toe(s), unspecified side; Z79.899 Other long term (current) drug therapy; W22.03XA Walked into furniture, initial encounter
CPT/HCPCS: 36415; 73630; 80053; 80202; 81001; 82010; 82803; 83036; 83605; 83735; 84100; 84145; 84295; 85025; 85610; 85652; 86140; 87040; 96361; 96365; 96366; 99283; A4217; A4649; J1644; J1815; J2060; J2250; J2371; J2543; J2704; J3373; J3490; J7050; J7120; A9270

== ENCOUNTER 2025-04-29 13:36 | Emergency (ER) | payer MEDICARE, SELFPAY ==
--- NOTE | 2025-04-29 14:00 | XR_ITS ---
Examination: Foot, left, 3 views Technique: AP, oblique, lateral views foot, 3 views Date and time of exam: April 29, 2025, 1451 hours, comparison March 20, 2025 INDICATIONS: Nonhealing wound first digit, amputation 3 weeks ago first digit persistent nonhealing surgical wound FINDINGS: Again noted linear opaque foreign body adjacent to the second digit Amputation distal first metatarsal Subtle cortical erosion along the medial shaft of the first metatarsal IMPRESSION: Early osteomyelitis first metatarsal remnant
[2025-04-29 14:01] VITALS: BP 136/92; PULSE 89; RESP 20; TEMP 36.8; O2SAT 97; BMI 22.8
--- NOTE | 2025-04-29 14:01 | PD.EDRME ---
Rapid Medical Screening Exam E Arrival date/time: 04/29/25 13:36 59-year-old male with a history of type 2 diabetes presents to the emergency room with a chief complaint of diabetic foot ulcer to the right foot. Patient recently had a toe amputation 3 weeks ago in the same area. Patient states that area has opened up and is now draining and looks infected. Patient was seen at his primary care provider's and sent to the emergency room I have greeted and performed a focused initial assessment of this patient. A comprehensive ED assessment and evaluation of the patient, analysis of all test results, and completion of the medical decision making process will be conducted by additional ED providers. Chief Complaint: General Adult/Misc Complain Vital signs: Vital Signs Temperature 98.2 F 04/29/25 14:01 Pulse Rate 89 04/29/25 14:01 Respiratory Rate 20 04/29/25 14:01 Blood Pressure 136/92 H 04/29/25 14:01 Pulse Oximetry (%) 97 04/29/25 14:01 Oxygen Delivery Method Room Air 04/29/25 14:01 Vital signs reviewed by provider: Yes Exam: Erythemic, draining, tender right foot diabetic foot ulcer to the 1st and 2nd digit clear bilateral lung sounds Clinical Impression: Osteomyelitis/cellulitis
[2025-04-29 14:40] LABS: Lactate (Lactic Acid) 1.4 mMol/L (0.4-2.0)
[2025-04-29 14:45] LABS: Basophils # (Auto) 0.1 Thou/mm3 (0.0-0.2); Basophils % (Auto) 1 % (0-2.5); Eosinophils # (Auto) 0.1 Thou/mm3 (0.0-0.5); Eosinophils % (Auto) 1 % (0-10); Hematocrit 40.1 % (41.0-53.0); Hemoglobin 13.1 g/dL (13.5-16.0); Immature Granulocytes Auto 0.02 Thou/mm3 (0.00-0.00); Lymphocytes # (Auto) 1.8 Thou/mm3 (1.0-4.8); Lymphocytes % (Auto) 21 % (10-50); Mean Corpuscular HGB Conc 32.7 g/dl (31.0-37.0); Mean Corpuscular Hemoglobin 29.2 pg (25.0-35.0); Mean Corpuscular Volume 90 fL (80-100); Monocytes # (Auto) 0.3 Thou/mm3 (0.0-0.8); Monocytes % (Auto) 4 % (0-12); Neutrophils # (Auto) 6.2 Thou/mm3 (1.8-7.7); Neutrophils % (Auto) 73 % (37-80); Nucleated Red Blood Cell # 0.00 Thou/mm3 (0.00-0.00); Nucleated Red Blood Cell % 0 /100 WBC (0); Platelet Count 327 Thou/mm3 (140-440); RDW Standard Deviation 40.8 fL (35.1-43.9); Red Blood Count 4.48 Miln/mm3 (4.50-5.90); White Blood Count 8.5 Thou/mm3 (3.8-10.6)
[2025-04-29 15:04] LABS: Sed Rate (ESR) 51 mm/hr (0-20)
[2025-04-29 15:06] LABS: Collection Type, Urine Clean Catch
[2025-04-29 15:18] LABS: Alanine Aminotransferase 7 U/L (10-49); Albumin, Serum 4.7 gm/dL (3.5-5.0); Albumin/Globulin Ratio 1.4 (1.2-2.2); Alkaline Phosphatase 101 U/L (46-116); Anion Gap 9 (7-16); Aspartate Amino Transferase 16 U/L (0-34); BUN/Creatinine Ratio 17 Ratio (12-20); Bilirubin,Total 0.4 mg/dL (0.3-1.2); Blood Urea Nitrogen 19 mg/dL (9-23); C-Reactive Protein 1.3 mg/dL (0.0-0.9); Calcium 9.8 mg/dL (8.3-10.6); Calcium (Corrected) 9.8 mg/dL (8.5-10.1); Carbon Dioxide 24.0 mMol/L (20.0-31.0); Chloride 104 mMol/L (98-107); Creatinine (Component) 1.1 mg/dL (0.6-1.3); Estimated Creatinine Clearance 78.9 mL/min (>60); Globulin 3.4 gm/dL (2.3-3.5); Glucose 199 mg/dL (74-106); Osmolality,Calculated 282 (275-295); Potassium 4.4 mMol/L (3.4-5.1); Procalcitonin 0.05 ng/ml (0.0-0.49); Sodium 137 mMol/L (136-145); Total Protein 8.1 gm/dL (5.7-8.2); eGFR > 60 See Note
[2025-04-29 15:37] LABS: Bacteria,Urine Rare; Bilirubin,Urine Negative (Negative); Blood,Urine Negative (Negative); Clarity,Urine Clear (Clear/Hazy); Color,Urine Lt-Yellow (Lt Yel-Yel); Glucose, Urine 4+ (Negative); Ketones,Urine 1+ (Negative); Leukocyte Esterase,Urine Negative (Negative); Nitrite,Urine Negative (Negative); PH,Urine 5.5 (5.0-7.0); Protein,Urine Trace (Neg - Trace); RBC,Urine 8 /hpf (0-3); Specific Gravity,Urine 1.045 (1.001-1.035); Squamous Epithelial Cell,Urine < 1 /hpf (0-5); Urobilinogen,Urine Negative mg/dL (0.0-1.0); WBC,Urine < 1 /hpf (0-5)
[2025-04-29 18:00] VITALS: BP 132/73; PULSE 85; RESP 16; TEMP 36.8; O2SAT 99
--- NOTE | 2025-04-29 18:03 | EDNOTE_ITS ---
<Statement entered by Ekaterina Sam MD - 05/15/25 07:25> As co-signing physician, I was present and available for consult prn. I concur with the plan and care as documented by the midlevel provider. ED General RME/HPI General Chief complaint: General Adult/Misc Complain Stated complaint: R) GREAT TOE AMP X 3 WKS, SENT TO ER BY [facility] Time Seen by Provider: 04/29/25 17:46 Arrival date/time: 04/29/25 13:36 CC: I think my amputation site, right foot is infected HPI patient states he was referred after he saw the surgeon, stitches were removed and it opened up while taking a dressing off. He was advised per the surgeon to follow-up with podiatry but has not since not done that. Patient noticed that there is some oozing from the site it is not tender and not red. RME / HPI RME / HPI narrative: 04/29/25 13:36 59-year-old male with a history of type 2 diabetes presents to the emergency room with a chief complaint of diabetic foot ulcer to the right foot. Patient recently had a toe amputation 3 weeks ago in the same area. Patient states that area has opened up and is now draining and looks infected. Patient was seen at his primary care provider's and sent to the emergency room I have greeted and performed a focused initial assessment of this patient. A comprehensive ED assessment and evaluation of the patient, analysis of all test results, and completion of the medical decision making process will be conducted by additional ED providers. Exam: Erythemic, draining, tender right foot diabetic foot ulcer to the 1st and 2nd digit clear bilateral lung sounds Impression: Osteomyelitis/cellulitis Related Data Home Medications ?Medication ?Instructions ?Recorded ?Confirmed duloxetine 60 mg capsule,delayed 60 mg PO QDAY 10/06/2 4 03/20/25 release Held on 03/24/25. Instructions: f/u with pcp Previous Rx's ?Medication ?Instructions ?Recorded blood-glucose sensor (FreeStyle #1 ea 03/24/25 Vimal 3 Plus Sensor device) blood-glucose,zinc plate grainer,cont #1 ea 03/24/25 (FreeStyle Vimal 3 White) insulin degludec 100 unit/mL (3 10 unit (0.1 mL) subcu t QDAY #15 mL 03/24/25 mL) subcutaneous pen (Tresiba FlexTouch U-100 insulin) pen needle, diabetic 31 gauge x #100 ea 03/24/25 15/ sulfamethoxazole 800 1 tab PO BID #14 tabs mg-trimethoprim 160 mg tablet (Bactrim DS) sulfamethoxazole 800 1 tab PO BID 7 days #14 tabs 04/29/25 mg-trimethoprim 160 mg tablet (Bactrim DS) Allergies Allergy/AdvReac Type Severity Reaction Status Date / Time No Known Allergies Allergy Verified 04/29/25 13:39 Review of Systems Review of Systems Narrative Review of Systems: GEN: No fever, no chills, no weight loss EYES: No discharge, no visual changes, no pain HEENT: No ear pain, no congestion, no sore throat PULM: No shortness of breath, no cough, no congestion CV: No chest pain, no dyspnea on exertion, no palpitations GI: No nausea, no vomiting, no diarrhea, no pain, no constipation : No frequency, no urgency, no dysuria MUSC/SKEL: No joint pain, no back pain SKIN: Open surgical site on the right foot no rash PSYCH: No hallucinations, no depression HEME/LYMPH: No easy bleeding or bruising tendencies NEURO: No weakness, no headache Past Medical History Past Medical History NEUROLOGIC: Positive Neurological Disorders (restless leg syndrome) and Peripheral Neuropathy; Negative Seizures CARDIAC: Positive Cardiac Disorders and Atrial Fibrillation; Negative Congestive Heart Failure or Hypertension RESPIRATORY: Negative Chronic Obstructive Pulmonary Disease (COPD) or Asthma GASTROINTESTINAL: Positive Gastrointestinal Disorders (gastric bypass.) GENITOURINARY: Negative Genitourinary Disorders or Renal Disease MUSCULOSKELETAL: Negative Musculoskeletal Disorders ENDOCRINE: Positive Endocrine Disorders and Diabetes Mellitus Type 2; Negative Diabetes Mellitus Type 1 HEMATOLOGIC: Negative Blood Disorders or Sickle Cell Disease PSYCHO/SOCIAL: Positive Depression and Anxiety OTHER HISTORY: Positive Falls; Negative Blood Transfusions, Blood Transfusion Reaction, Anesthesia Reactions or MRSA Surgical History SURGICAL: Positive Gastric Bypass Surgery Social History SMOKING STATUS: Current every day smoker SUBSTANCE USE: marijuana and methamphetamine ED Exam Narrative Physical exam: [General: Somewhat ill kempt, but not in any distress Head normocephalic HEENT: Within acceptable limits Neck is supple nontender Chest equal chest rise nontender to palpation Respiratory: Clear to auscultation no wheezes crackles or rubs CV: Rate rhythm is regular no murmurs rubs or clicks Abdomen is soft nontender no masses positive bowel sounds all 4 quadrants Back: No CVA tenderness no spinous process tenderness from cervical spine thoracic and lumbar spine Skin: 6 cm open site at the place where the great toe should be on the right foot. No surrounding erythema not warm to touch. No other toes or dorsum or sole of the foot involved. Oozing a small amount of exudate. Wound site is dirty. No streaking in the dorsum of the foot. No other open lesions. Otherwise skin is intact no petechiae rash induration ulceration or crepitus Extremities: Absent right great toe. Moving all other extremities against resistance cap refill less than 2 seconds neurosensory intact Neuro: Awake alert oriented x3 Glascow coma 15 no focal deficits] Course Course Course Narrative: There are no acute findings other than the early osteomyelitis patient be discharged home on antibiotics, and needs to follow-up with [facility] for podiatry to further work on the foot. Patient advised if there is a fever or worsening symptoms to return the emergency room for reevaluation. Quality Measures none Orders Category Date Time Status XR foot comp LT min 3V Stat Exams 04/29/25 14:00 Completed Blood Culture (Lab) Stat Lab 04/29/25 14:21 Received CBC Stat Lab 04/29/25 14:26 Completed CMP [Comprehensive Metabolic Panel] Stat Lab 04/29/25 14:26 Completed CRP [C-Reactive Protein] Stat Lab 04/29/25 14:26 Completed ESR [Sed Rate (ESR)] Stat Lab 04/29/25 14:26 Completed Lactate (Lactic Acid) Stat Lab 04/29/25 14:26 Completed Procalcitonin Stat Lab 04/29/25 14:26 Completed UA [Urinalysis] Stat Lab 04/29/25 14:52 Completed Urine Culture Stat Lab 04/29/25 14:52 Received [id number] [Rocephin] 1,000 mg Med 04/29/25 18:03 Ordered Lidocaine 1% Pf Vial 5ml [Xylocaine 1% Pf 5 ml] 2.1 ml IM X1 Vital Signs Vital signs: Vital Signs Temperature 98.2 F 04/29/25 14:01 Pulse Rate 89 04/29/25 14:01 Respiratory Rate 20 04/29/25 14:01 Blood Pressure 136/92 H 04/29/25 14:01 Pulse Oximetry (%) 97 04/29/25 14:01 Oxygen Delivery Method Room Air 04/29/25 14:01 Discharge Plan Plan Patient Disposition: HOME (Self Care) Patient condition on transfer: Stable Prescriptions/Referrals Prescriptions/Med Rec: New sulfamethoxazole-trimethoprim [Bactrim DS] 800-160 mg tablet 1 tab PO BID 7 Days Qty: 14 0RF No Action insulin degludec [Tresiba FlexTouch U-100] 100 unit/mL (3 mL) insulin pen 10 unit subcut QDAY Qty: 15 0RF (DME) pen needle, diabetic 31 gauge x 15/64 needle See Rx Instructions .Route Qty: 100 0RF Rx Instructions: As directed (DME) FreeStyle Vimal 3 Plus Sensor Device See Rx Instructions .Route Qty: 1 0RF Rx Instructions: As directed (DME) FreeStyle Vimal 3 White Misc See Rx Instructions .Route Qty: 1 0RF Rx Instructions: As directed sulfamethoxazole-trimethoprim [Bactrim DS] 800-160 mg tablet 1 tab PO BID Qty: 14 0RF duloxetine 60 mg Capsule,Delayed Release(Dr/Ec) 60 mg PO QDAY Referrals: Aylin Smith NP [Primary Care Provider] - In 1 week Durga Brock MD [Physician, Pediatrics] - In 1 week Problem List Clinical Impression: Dehiscence of surgical wound, Osteomyelitis Patient/Caregiver Discharge Instructions Other Activity Instructions:: Take the medications as prescribed. Follow-up promptly with [facility] and get a referral to podiatry. If there is a worsening of symptoms including warmth around the site streaking of redness into the foot or fever return immediately to the emergency room for reevaluation. Education Materials: Osteomyelitis Dc, ED Post Op Wound Check, Infection Print Language: Persian Stand Alone Forms: Ana Award Info., Patient Portal Info Letter, Work/School Release PA/LOUISE Supervising Physician JOSEP/DATABASE TESTER Supervising Physician: Shalom Mccormick ENP [facility] Clinical Information Provided by: patient Medical Records reviewed [facility] Meds/Rx considered, not ordered None Labs/Rad/Tests considered, not ordered None Chronic Illness/Social Conditions Explain: Diabetes recent toe amputation. EKG EKG not done Labs Labs: interpreted by mn Lab(s) Interpretation(s): CBC shows no leukocytosis mild anemia with a hemoglobin of 13.1 and hematocrit of 40.0. No thrombocytopenia. ESR 51 CMP shows a glucose of 199 no other electrolyte imbalances no renal impairment no transaminitis or T. bili elevation. CRP of 1.3. Pro-Kenny of 0.05. Urine shows 4+ glucose 1+ ketones but no signs of infection. Imaging Imaging interpretation: interpreted by me Imaging Interpretation(s): Read by radiology as early osteomyelitis of the first digit toe remanent. Medication Administration(s) Medication Administration History Ceftriaxone Sodium 1,000 mg/ (Lidocaine HCl 2.1 ml) 0 mg IM X1 ONE Stop: 04/29/25 18:04
[2025-04-29 18:51] VITALS: BP 136/62; PULSE 92; RESP 16; TEMP 37; O2SAT 99
== END 2025-04-29 18:51 | disposition home or self-care (01) ==
PROVIDERS: Nurse Practitioner Family; Emergency Provider Emergency Medicine; PCP Nurse Practitioner Women's Health
DX: T81.31XA Disruption of external operation (surgical) wound, not elsewhere classified, initial encounter (principal); E11.69 Type 2 diabetes mellitus with other specified complication; L97.519 Non-pressure chronic ulcer of other part of right foot with unspecified severity; E11.621 Type 2 diabetes mellitus with foot ulcer; M86.9 Osteomyelitis, unspecified; Z79.4 Long term (current) use of insulin; Z89.411 Acquired absence of right great toe
CPT/HCPCS: 36415; 73630; 80053; 81001; 83605; 84145; 85025; 85652; 86140; 87040; 87086; 96372; 99283; J0696; J3490